=== PATIENT | female | born 1975 | race Caucasian/White ===

== ENCOUNTER 2018-10-26 05:39 | Outpatient (CLI) | payer MEDICAID ==
[~2018-10-26] VITALS: Ht 165.1 cm; Wt 82.6 kg
[~2018-10-26 05:39] MED LIST: ACHYD1T PO; AGM875T PO; DCS100C PO; GUAI100L2; IBP600T1 PO; IBP800T PO; MULT-974 PO; PREN1TAB14 PO
== END 2018-10-26 10:17 | disposition home or self-care (01) ==
LOC: PREOP 05:39
PROVIDERS: ATTEND Podiatrist Foot & Ankle Surgery
DX: Z01.818 Encounter for other preprocedural examination (principal)

== ENCOUNTER 2018-11-01 06:57 | Day surgery (SDC) | payer MEDICAID, OTHER ==
--- NOTE | 2018-10-25 17:02 | HISTORY AND PHYSICAL ---
DATE OF SERVICE: To have outpatient surgery by Dr. Sahni. CHIEF COMPLAINT: Bunion on right foot, hurts me and wants corrected. ALLERGIC TO MEDICATIONS: Denies. MEDICATIONS NOW ON: Denies. PAST SURGICAL HISTORY: Partial hysterectomy to have surgery by Dr. Sahni. FAMILY HISTORY: Denies asthma, TB, heart disease, lung disease. He admits in family to have diabetes and cancer. REVIEW OF SYSTEMS: HEAD: Denies headache, dizziness, fainting. EYES, EARS, NOSE AND THROAT: Denies diplopia, tinnitus, sore throat. RESPIRATORY: Denies asthma, TB, cough and congestion, smoking or wheezing. HEART: No history of heart problems, chest pain, heart murmur. GASTROINTESTINAL: Appetite good. Denies blood in stools, diarrhea, constipation, ulcer, vomiting. GENITOURINARY: Denies blood, pain or frequency. PHYSICAL EXAMINATION: GENERAL: The patient is a white female, well nourished, well-developed, in no acute respiratory distress at rest. VITAL SIGNS: Pulse 72, blood pressure 140/80, weight 182. EARS: No discharge. EYES: No conjunctivitis or icterus. THROAT: Not inflamed. NECK: Thyroid not enlarged. No abnormal cervical lymphadenopathy noted. CARDIOVASCULAR: Regular rate rhythm. LUNGS: Clear to auscultation. ABDOMEN: Soft. Good bowel sounds. EXTREMITIES: Good dorsalis pedis pulses. The patient okay to have surgery, will be on standby if has any problems. Job ID: [id number] DocumentID: [id number] Dictated Date: 10/25/2018 11:23:35 Room Service Associate Date: 10/25/2018 11:57:46 Dictated By: IKER CARDOSO DO
[2018-11-01] VITALS (10 sets, daily range): BP systolic 118–145; BP diastolic 75–89
[~2018-11-01] VITALS: Ht 165.1 cm; Wt 82.6 kg
--- OUTSIDE RECORDS SUMMARY | 2018-11-01 07:00 | XMS REPORT ---
Author Author Migration, Doctor Organization [facility] Address Unknown Phone Unavailable Care Team Providers Care Riprap Placer Name Role Phone Migration, Doctor Unavailable Unavailable PROBLEMS Type Condition ICD9-CM Code [id number] Code Onset Dates Condition Status SNOMED Code Problem Weight loss R63.4 Active 85154244 Problem Mixed hyperlipidemia E78.2 Active 849306556 Problem History of hysterectomy Z90.710 Active 660699936 ALLERGIES No Information ENCOUNTERS Encounter Location Date Diagnosis [facility] [address] [id number] Jun, Caries K02.9 ; Oral health maintenance status requiring routine preventive dental care K08.9 and Dental examination Z01.20 [facility] [id number] [place] [address] 71260- 3505 Apr, Annual physical exam Z00.00 [facility] [id number] [place] [address] [id number] Mar, [facility] [id number] [place] [address] [id number] Nov, Encounter for dental examination Z01.20 [facility] [id number] [place] [address] 71323- 9324 October, Encounter for weight loss counseling Z71.3 [facility] [id number] [place] [address] 15471- 9337 Sep, Weight loss R63.4 [facility] [id number] [place] [address] 73653- 4261 Aug, [facility] [id number] [place] [address] 71783- 9346 Aug, Mixed hyperlipidemia E78.2 [place] [id number] [place] [address] 51912- 2590 Aug, Annual physical exam Z00.00 and Weight loss counseling, encounter for Z71.3 [facility] [id number] [place] [address] [id number] Jul, Encounter for dental examination Z01.20 [facility] [address] [id number] [id number] Mar, Encounter for dental examination Z01.20 [facility] [id number] [place] [address] [id number] Nov, Encounter for dental examination Z01.20 [facility] [id number] [place] [address] [id number] Sep, Dental examination Z01.20 [facility] [id number] [place] [address] [id number] May, Encounter for dental examination Z01.20 [facility] [id number] [place] [address] [id number] Jan, Encounter for dental examination Z01.20 [facility] [id number] [place] [address] [id number] Sep, Encounter for dental examination Z01.20 [facility] [id number] [place] [address] [id number] Apr, Encounter for dental examination and cleaning without abnormal findings Z01.20 [facility] [address] [id number] [id number] Dec, Dental examination V72.2 [facility] [id number] [place] [address] [id number] October, Dental examination V72.2 [facility] [id number] [place] [address] 60947- 3326 Sep, [facility] [id number] [place] [address] 29524 2546 Sep, [facility] [id number] [place] [address] 60008- 0606 Feb, [facility] [place] [facility] [address] [id number] [place] [address] 2547 Dec, [facility] [address] [id number] [place] [address]- 8574 Dec, [facility] [address] [id number] [place] [address]- 2546 Dec, [facility] [address] [id number] [place] [address]- 2546 Dec, [facility] [address] [id number] [place] [address]- 4900 Dec, [facility] [address] [id number] [place] [address]- 0696 Nov, [facility] [address] [id number] [place] [address]- 5348 Nov, [facility] [address] [id number] [place] [address]- 3719 Nov, [facility] [address] [id number] [place] [address]- 2916 Nov, [facility] [address] [id number] [place] [address]- 3786 October, [facility] [address] [id number] [place] [address]- 3816 October, [facility] [address] [id number] [place] [address]- 2547 Sep, [facility] [address] [id number] [place] [address]- 2544 Aug, [facility] [place] [facility] [address] [id number] [place] [address]- 2546 Aug, [facility] [place] [facility] [address] [id number] [place] [address]- 2546 Aug, [facility] [address] [id number] [place] [address]- 1305 Aug, [facility] [address] [id number] [place] [address]- 1329 Jul, [facility] [place] [facility] [address] [id number] [place] [address] 1950 Jul, [facility] [place] [facility] [address] [facility] [id number] [place] [address]- 2036 Jul, [facility] [place] [facility] [address] [id number] [place] [address]- 1974 Jun, [facility] [address] [id number] [place] [address]- 6445 Jun, [facility] [place] [facility] [address] [facility] [id number] [place] [address]- 6802 Jun, [facility] [address] [facility] [id number] [place] [address]- 0145 Apr, [facility] [place] [facility] [address] [facility] [id number] [place] [address]- 7298 Apr, [facility] [place] [facility] [address] [facility] [id number] [place] [address]- 0620 Apr, [facility] [place] [facility] [address] [facility] [id number] [place] [address]- 3424 Apr, [facility] [place] [facility] [address] [facility] [id number], [place] [address]- 9580 Apr, [facility] [place] [facility] [address] [facility] [id number], [place] [address]- 2620 Apr, [facility] [place] [facility] [address] [facility] [id number], [place] [address] 1936 Mar, [facility] [place] [facility] [address] [facility] [id number] [place] [address]- 1355 Mar, [facility] [place] [facility] [address] [facility] [id number] [place] [address]- 5688 30 Mar, 2012 [facility] [place] [facility] [address] [id number] [place] [address]- 4202 30 Mar, 2012 [facility] [place] [facility] [address] [id number] [place] [address]- 9977 Mar, [facility] [place] [facility] [address] [id number] [place] [address]- 0886 Mar, [facility] [place] [facility] [address] [id number] [place] [address]- 7766 Feb, [facility] [place] [facility] [address] [id number] [place] [address]- 6766 Feb, [facility] [place] [facility] [address] [id number] [place] [address]- 7206 Feb, [facility] [place] [facility] [address] [id number] [place] [address]- 5077 Feb, [facility] [place] [facility] [address] [id number] [place] [address]- 9752 Jan, [facility] [place] [facility] [address] [id number] [place] [address]- 1213 Jan, [facility] [place] [facility] [address] [id number] [place] [address]- 2990 Jan, [facility] [place] [facility] [address] [id number] [place] [address]- 9177 Dec, [facility] [place] [facility] [address] [id number] [place] [address]- 5171 Dec, [facility] [place] [facility] [address] [id number] [place] [address]- 1897 Nov, [facility] [place] [facility] [address] [id number] [place] [address]- 5056 Nov, [facility] [place] [facility] [address] [id number] [place] [address]- 2546 17 Feb, 2009 [facility] [place] [facility] [address] [id number] [place] [address]- 1572 Jan, [facility] [address] [facility] [id number], [place] [address]- 2546 October, [facility] [address] [id number] [address] 2546 Sep, [facility] [address] [id number], [place] [address]- 8016 Jul, [facility] [address] [id number] [address]- 9906 Jun, IMMUNIZATIONS No Known Immunizations SOCIAL HISTORY Never Assessed REASON FOR VISIT EMR[place] [place] CARE VITAL SIGNS MEDICATIONS Unknown Medications RESULTS No Results PROCEDURES No Known procedures INSTRUCTIONS MEDICATIONS ADMINISTERED No Known Medications MEDICAL (GENERAL) HISTORY Type Description Date Medical History Seasonal Allergies Surgical History Hysterectomy 2012 Hospitalization History Hospitalization for surgery only 2012
--- OUTSIDE RECORDS SUMMARY | 2018-11-01 07:00 | XMS REPORT ---
Author Author MAYRA RAMSEY Organization [facility] Address [address] [place] [address] Care Team Providers Care Developer Programmer Analyst Name Role Phone MAYRA RAMSEY Unavailable PROBLEMS Type Condition ICD9-CM Code [id number] Code Onset Dates Condition Status SNOMED Code Problem Mixed hyperlipidemia E78.2 Active 792581041 Problem Weight loss R63.4 Active 80476266 Problem History of hysterectomy Z90.710 Active 424079325 ALLERGIES No Known Allergies ENCOUNTERS Encounter Location Date Diagnosis [facility] [address] [id number] May, [place] [address] [address]- [address] Apr, Annual physical exam Z00.00 [facility] [address] [id number] Mar, [facility] [address] [id number] Nov, Encounter for dental examination Z01.20 [place] [address] [address]- 5825 October, Encounter for weight loss counseling Z71.3 [facility] [address] 30673- 5659 Sep, Weight loss R63.4 [place] [address] [address]50- 3441 Aug, [place] [address] 75047- 6900 Aug, Mixed hyperlipidemia E78.2 [place] [address] [address]- 1475 Aug, Annual physical exam Z00.00 and Weight loss counseling, encounter for Z71.3 [facility] [id number] [place] [address] [id number] Jul, Encounter for dental examination Z01.20 [facility] [address] [id number] [place] [id number] Mar, Encounter for dental examination Z01.20 [facility] [address] [id number] [place] [address] [id number] Nov, Encounter for dental examination Z01.20 [facility] [id number] [place] [address] [id number] Sep, Dental examination Z01.20 [facility] [address] [id number] [place] [address] [id number] May, Encounter for dental examination Z01.20 [facility] [id number] [place] [address] [id number] Jan, Encounter for dental examination Z01.20 [facility] [address] [id number] [place] [address] [id number] Sep, Encounter for dental examination Z01.20 [facility] [address] [id number] [place] [address] [id number] Apr, Encounter for dental examination and cleaning without abnormal findings Z01.20 [facility] [id number] [place] [address] [id number] Dec, Dental examination V72.2 [facility] [address] [id number] [place] [address] [id number] October, Dental examination V72.2 [facility] [id number] [place] [address] [id number] Sep, [facility] [id number] [place] [address] 03862- 9806 Sep, [facility] [id number] [place] [address] 38298- 0891 Feb, [facility] [address] [id number] [place] [address]- 9069 Dec, [facility] [place] [facility] [address] [id number] [place] [address]- 6496 Dec, [facility] [place] [facility] [address] [id number] [place] [address]- 1096 Dec, [facility] [place] [facility] [address] [id number] [place] [address]- 2546 Dec, [facility] [address] [id number] [place] [address]- 9456 Dec, [facility] [place] [facility] [address] [id number] [place] [address]- 1136 Nov, [facility] [place] [facility] [address] [id number] [place] [address]- 3046 Nov, [facility] [place] [facility] [address] [id number] [place] [address]- 7346 Nov, [facility] [place] [facility] [address] [id number] [place] [address]- 8586 Nov, [facility] [place] [facility] [address] [id number] [place] [address]- 2536 October, [facility] [place] [facility] [address] [id number] [place] [address]- 2546 October, [facility] [place] [facility] [address] [id number] [place] [address]- 6726 Sep, [facility] [place] [facility] [address] [id number] [place] [address]- 1216 Aug, [facility] [place] [facility] [address] [id number] [place] [address]- 3436 Aug, [facility] [place] [facility] [address] [id number] [place] [address]- 7246 Aug, [facility] [place] [facility] [address] [id number] [place] [address]- 6616 Aug, [facility] [address] [id number] [place] [address]- 4354 Jul, [facility] [place] [facility] [address] [id number] [place] [address]- 8766 Jul, [facility] [place] [facility] [address] [facility] [id number] [place] [address]- 8006 Jul, [facility] [place] [facility] [address] [id number] [place] [address]- 7261 Jun, [facility] [place] [facility] [address] [id number] [place] [address]- 8608 Jun, [facility] [place] [facility] [address] [id number] [place] [address]- 2854 Jun, [facility] [place] [facility] [address] [facility] [id number] [place] [address]- 5176 Apr, [facility] [place] [facility] [address] [id number] [place] [address]- 4383 Apr, [facility] [place] [facility] [address] [facility] [id number] [place] [address]- 2774 Apr, [facility] [place] [facility] [address] [facility] [id number] [place] [address]- 6833 Apr, [facility] [place] [facility] [address] [facility] [id number] [place] [address]- 3097 Apr, [facility] [place] [facility] [address] [facility] [id number] [place] [address]- 2178 Apr, [facility] [place] [facility] [address] [id number] [place] [address]- 9752 Mar, [facility] [place] [facility] [address] [facility] [id number] [place] 6489 Mar, [facility] [place] [facility] [address] [facility] [id number] [place] [address]- 4062 Mar, [facility] [place] [facility] [address] [id number] [place] [address]- 4730 Mar, [facility] [place] [facility] [address] [id number] [place] [address]- 3482 Mar, [facility] [place] [facility] [address] [id number] [place] [address]- 3376 Mar, [facility] [place] [facility] [address] [id number] [place] [address]- 2733 Feb, [facility] [place] [facility] [address] [id number] [place] [address]- 1976 Feb, [facility] [place] [facility] [address] [id number] [place] [address]- 1526 Feb, [facility] [place] [facility] [address] [id number] [place] [address]- 1612 Feb, [facility] [place] [facility] [address] [id number] [place] [address]- 9997 Jan, [facility] [place] [facility] [address] [id number] [place] [address]- 7950 Jan, [facility] [place] [facility] [address] [id number] [place] [address]- 6731 Jan, [facility] [place] [facility] [address] [id number] [place] [address]- 5406 Dec, [facility] [place] [facility] [address] [id number] [place] [address]- 4448 Dec, [facility] [place] [facility] [address] [id number] [place] [address]- 1297 Nov, [facility] [place] [facility] [address] [id number] [place] [address]- 1834 Nov, [facility] [place] [facility] [address] [id number] [place] [address]- 6042 17 Feb, 2009 [facility] [place] [facility] [address] [id number] [place] [address]- 9423 Jan, [facility] [address] [facility] [id number] [place] [address]- 2546 October, [facility] [address] [facility] [id number] [place] [address]- 2546 Sep, [facility] [address] [facility] [id number] [place] [address]- 2546 Jul, [facility] [address] [facility] [id number] [place] [address]- 2546 Jun, IMMUNIZATIONS No Known Immunizations SOCIAL HISTORY Never Assessed REASON FOR VISIT yearly check up and labs for insurance July [facility] PLAN OF CARE Activity Details Follow Up August 2018 Reason:annual labs VITAL SIGNS Height 64 in 2018-05-04 Weight 173.5 lbs 2018-05-04 Temperature 97.9 degrees Fahrenheit 2018-05-04 Heart Rate 87 bpm 2018-05-04 Respiratory Rate 18 2018-05-04 BMI 29.78 kg/m2 2018-05-04 Blood pressure systolic 132 mmHg 2018-05-04 Blood pressure diastolic 82 mmHg 2018-05-04 MEDICATIONS Medication Instructions Dosage Frequency Start Date End Date Duration Status Zyrtec Allergy 10 MG Orally Once a day 1 tablet as needed 24h Active Multi Vitamin Daily Orally Once a day 1 tablet 24h Active RESULTS No Results PROCEDURES No Known procedures INSTRUCTIONS MEDICATIONS ADMINISTERED No Known Medications MEDICAL (GENERAL) HISTORY Type Description Date Medical History Seasonal Allergies Surgical History Hysterectomy 2012 Hospitalization History Hospitalization for surgery only 2012
--- OUTSIDE RECORDS SUMMARY | 2018-11-01 07:00 | XMS REPORT ---
Author Author Migration, Doctor Organization [facility] Address Unknown Phone Unavailable Care Team Providers Care Food And Beverage Intern Name Role Phone Migration, Doctor Unavailable Unavailable PROBLEMS Type Condition ICD9-CM Code KGA78-HI Code Onset Dates Condition Status SNOMED Code Problem Weight loss R63.4 Active 07072671 Problem Mixed hyperlipidemia E78.2 Active 554384657 Problem History of hysterectomy Z90.710 Active 121841373 ALLERGIES No Information ENCOUNTERS Encounter Location Date Diagnosis [facility] [address] [id number] Jun, Caries K02.9 ; Oral health maintenance status requiring routine preventive dental care K08.9 and Dental examination Z01.20 [facility] [id number] [place] [address] 57798- 1412 Apr, Annual physical exam Z00.00 [facility] [id number] [place] [address] [id number] Mar, [facility] [id number] [place] [address] [id number] Nov, Encounter for dental examination Z01.20 [facility] [id number] [place] [address] 67795- 3902 October, Encounter for weight loss counseling Z71.3 [facility] [id number] [place] [address] 34419- 3609 Sep, Weight loss R63.4 [facility] [id number] [place] [address] 02862- 0125 Aug, [facility] [id number] [place] [address] 13470- 6873 Aug, Mixed hyperlipidemia E78.2 [place] [id number] [place] [address] 27772- 2292 Aug, Annual physical exam Z00.00 and Weight loss counseling, encounter for Z71.3 [facility] [id number] [place] [address] [id number] Jul, Encounter for dental examination Z01.20 [facility] [address] [id number] [id number] Mar, Encounter for dental examination Z01.20 [facility] [id number] [place] [address] [id number] Nov, Encounter for dental examination Z01.20 [facility] [address] [id number] [place] [address] [id number] Sep, Dental examination Z01.20 [facility] [id number] [place] [address] [id number] May, Encounter for dental examination Z01.20 [facility] [id number] [place] [address] [id number] Jan, Encounter for dental examination Z01.20 [facility] [address] [id number] [place] [address] [id number] Sep, Encounter for dental examination Z01.20 [facility] [address] [id number] [place] [address] [id number] Apr, Encounter for dental examination and cleaning without abnormal findings Z01.20 [facility] [address] [id number] [id number] Dec, Dental examination V72.2 [facility] [address] [id number] [place] [address] [id number] October, Dental examination V72.2 [facility] [id number] [place] [address] 43911- 5886 Sep, [facility] [id number] [place] [address] 86017 2546 Sep, [facility] [id number] [place] [address] 08905- 3906 Feb, [facility] [place] [facility] [address] [id number] [place] [address] 2543 Dec, [facility] [address] [id number] [place] [address]- 8584 Dec, [facility] [address] [id number] [place] [address]- 2546 Dec, [facility] [address] [id number] [place] [address]- 2546 Dec, [facility] [address] [id number] [place] [address]- 4514 Dec, [facility] [address] [id number] [place] [address]- 0926 Nov, [facility] [address] [id number] [place] [address]- 0694 Nov, [facility] [address] [id number] [place] [address]- 6794 Nov, [facility] [address] [id number] [place] [address]- 3354 Nov, [facility] [address] [id number] [place] [address]- 6356 October, [facility] [address] [id number] [place] [address]- 0926 October, [facility] [address] [id number] [place] [address]- 2545 Sep, [facility] [address] [id number] [place] [address]- 2548 Aug, [facility] [place] [facility] [address] [id number] [place] [address]- 2546 Aug, [facility] [place] [facility] [address] [id number] [place] [address]- 2546 Aug, [facility] [address] [id number] [place] [address]- 3188 Aug, [facility] [address] [id number] [place] [address]- 4446 Jul, [facility] [place] [facility] [address] [id number] [place] [address]- 5352 Jul, [facility] [place] [facility] [address] [facility] [id number] [place] [address]- 2576 Jul, [facility] [place] [facility] [address] [id number] [place] [address]- 2904 Jun, [facility] [address] [id number] [place] [address]- 9491 Jun, [facility] [place] [facility] [address] [facility] [id number] [place] [address]- 0187 Jun, [facility] [address] [facility] [id number] [place] [address]- 0510 Apr, [facility] [place] [facility] [address] [facility] [id number] [place] [address]- 3770 Apr, [facility] [place] [facility] [address] [facility] [id number] [place] [address]- 0757 Apr, [facility] [place] [facility] [address] [facility] [id number] [place] [address]- 1636 Apr, [facility] [place] [facility] [address] [facility] [id number], [place] [address]- 8838 Apr, [facility] [place] [facility] [address] [facility] [id number], [place] [address]- 0309 Apr, [facility] [place] [facility] [address] [facility] [id number], [place] [address]- 6861 Mar, [facility] [place] [facility] [address] [facility] [id number] [place] [address]- 4568 Mar, [facility] [place] [facility] [address] [facility] [id number] [place] [address]- 9736 30 Mar, 2012 [facility] [place] [facility] [address] [id number] [place] [address]- 2250 30 Mar, 2012 [facility] [place] [facility] [address] [id number] [place] [address]- 5279 Mar, [facility] [place] [facility] [address] [id number] [place] [address]- 8546 Mar, [facility] [place] [facility] [address] [id number] [place] [address]- 5036 Feb, [facility] [place] [facility] [address] [id number] [place] [address]- 5376 Feb, [facility] [place] [facility] [address] [id number] [place] [address]- 1866 Feb, [facility] [place] [facility] [address] [id number] [place] [address]- 9085 Feb, [facility] [place] [facility] [address] [id number] [place] [address]- 7475 Jan, [facility] [place] [facility] [address] [id number] [place] [address]- 2490 Jan, [facility] [place] [facility] [address] [id number] [place] [address]- 2326 Jan, [facility] [place] [facility] [address] [id number] [place] [address]- 0108 Dec, [facility] [place] [facility] [address] [id number] [place] [address]- 5805 Dec, [facility] [place] [facility] [address] [id number] [place] [address]- 1925 Nov, [facility] [place] [facility] [address] [id number] [place] [address]- 8236 Nov, [facility] [place] [facility] [address] [id number] [place] [address]- 2546 17 Feb, 2009 [facility] [place] [facility] [address] [id number] [place] [address]- 1392 Jan, [facility] [address] [facility] [id number] [address] 2546 October, [facility] [address] [facility] [id number] [address] 2546 Sep, [facility] [address] [facility] [id number] [address]- 2546 Jul, [facility] [address] [facility] [id number], [place] [address]- 2546 Jun, IMMUNIZATIONS No Known Immunizations SOCIAL HISTORY Never Assessed REASON FOR VISIT EMR-[facility] PLAN OF CARE VITAL SIGNS MEDICATIONS Medication Instructions Dosage Frequency Start Date End Date Duration Status Ibuprofen 800 mg take 1 tablet (800 mg) by oral route 3 times per day with food Feb, Active Hydrocodone-Acetaminophen 10-325 mg take 1 tablet by oral route every 4 hours as needed for pain Feb, Active Flagyl 500 mg 1 tablet by Oral route 2 times per day for 7 days Aug Active RESULTS No Results PROCEDURES No Known procedures INSTRUCTIONS MEDICATIONS ADMINISTERED No Known Medications MEDICAL (GENERAL) HISTORY Type Description Date Medical History Seasonal Allergies Surgical History Hysterectomy 2012 Hospitalization History Hospitalization for surgery only 2012
--- OUTSIDE RECORDS SUMMARY | 2018-11-01 07:00 | XMS REPORT ---
Author Author Migration, Doctor Organization [facility] Address Unknown Phone Unavailable Care Team Providers Care Court Recording Monitor Name Role Phone Migration, Doctor Unavailable Unavailable PROBLEMS Type Condition ICD9-CM Code LXD50-WD Code Onset Dates Condition Status SNOMED Code Problem Weight loss R63.4 Active 44445768 Problem Mixed hyperlipidemia E78.2 Active 776757160 Problem History of hysterectomy Z90.710 Active 876643815 ALLERGIES No Information ENCOUNTERS Encounter Location Date Diagnosis [facility] [address] [id number] Jun, Caries K02.9 ; Oral health maintenance status requiring routine preventive dental care K08.9 and Dental examination Z01.20 [facility] [id number] [place] [address] 19546- 2527 Apr, Annual physical exam Z00.00 [facility] [id number] [place] [address] [id number] Mar, [facility] [id number] [place] [address] [id number] Nov, Encounter for dental examination Z01.20 [facility] [id number] [place] [address] 14282- 4093 October, Encounter for weight loss counseling Z71.3 [facility] [id number] [place] [address] 49141- 2821 Sep, Weight loss R63.4 [facility] [id number] [place] [address] 11062- 1391 Aug, [facility] [id number] [place] [address] 34234- 9845 Aug, Mixed hyperlipidemia E78.2 [facility] [id number] [place] [address] 46243- 8243 Aug, Annual physical exam Z00.00 and Weight loss counseling, encounter for Z71.3 [facility] [address] [id number] [place] [address] [id number] Jul, Encounter for dental examination Z01.20 [facility] [address] [id number] [id number] Mar, Encounter for dental examination Z01.20 [facility] [address] [id number] [place] [address] [id number] Nov, Encounter for dental examination Z01.20 [facility] [address] [id number] [place] [address] [id number] Sep, Dental examination Z01.20 [facility] [address] [id number] [place] [address] [id number] May, Encounter for dental examination Z01.20 [facility] [address] [id number] [place] [address] [id number] Jan, Encounter for dental examination Z01.20 [facility] [address] [id number] [place] [address] [id number] Sep, Encounter for dental examination Z01.20 [facility] [address] [id number] [place] [address] [id number] Apr, Encounter for dental examination and cleaning without abnormal findings Z01.20 [facility] [address] [id number][place] [id number] Dec, Dental examination V72.2 [facility] [id number] [place] [address] [id number] October, Dental examination V72.2 [facility] [address] [place] [address] 52266- 6106 Sep, [facility] [id number] [place] [address] 58908 2546 Sep, [facility] [address] [place] [address] 68978- 6776 Feb, [facility] [place] [facility] [address] [id number] [place] [address] 2547 Dec, [facility] [address] [id number] [place] [address]- 7344 Dec, [facility] [address] [id number] [place] [address]- 2546 Dec, [facility] [address] [id number] [place] [address]- 2546 Dec, [facility] [address] [id number] [place] [address]- 1317 Dec, [facility] [address] [id number] [place] [address]- 1886 Nov, [facility] [address] [id number] [place] [address]- 9773 Nov, [facility] [address] [id number] [place] [address]- 2284 Nov, [facility] [address] [id number] [place] [address]- 9777 Nov, [facility] [address] [id number] [place] [address]- 9478 October, [facility] [address] [id number] [place] [address]- 7516 October, [facility] [address] [id number] [place] [address]- 2544 Sep, [facility] [address] [id number] [place] [address]- 2549 Aug, [facility] [place] [facility] [address] [id number] [place] [address]- 2546 Aug, [facility] [place] [facility] [address] [id number] [place] [address]- 2546 Aug, [facility] [address] [id number] [place] [address]- 3820 Aug, [facility] [address] [id number] [place] [address]- 0062 Jul, [facility] [place] [facility] [address] [id number] [place] [address]- 0408 Jul, [facility] [place] [facility] [address] [facility] [id number] [place] [address]- 9780 Jul, [facility] [place] [facility] [address] [id number] [place] [address]- 2577 Jun, [facility] [address] [id number] [place] [address]- 7188 Jun, [facility] [place] [facility] [address] [facility] [id number] [place] [address]- 1685 Jun, [facility] [address] [facility] [id number] [place] [address]- 8345 Apr, [facility] [place] [facility] [address] [facility] [id number] [place] [address]- 7428 Apr, [facility] [place] [facility] [address] [facility] [id number] [place] [address]- 5553 Apr, [facility] [place] [facility] [address] [facility] [id number] [place] [address]- 4026 Apr, [facility] [place] [facility] [address] [facility] [id number], [place] [address]- 9895 Apr, [facility] [place] [facility] [address] [facility] [id number], [place] [address]- 4095 Apr, [facility] [place] [facility] [address] [facility] [id number], [place] [address]- 3392 Mar, [facility] [place] [facility] [address] [facility] [id number] [place] [address]- 5223 Mar, [facility] [place] [facility] [address] [facility] [id number] [place] [address]- 7558 30 Mar, 2012 [facility] [place] [facility] [address] [id number] [place] [address]- 4952 30 Mar, 2012 [facility] [place] [facility] [address] [id number] [place] [address]- 8319 Mar, [facility] [place] [facility] [address] [id number] [place] [address]- 4226 Mar, [facility] [place] [facility] [address] [id number] [place] [address]- 9446 Feb, [facility] [place] [facility] [address] [id number] [place] [address]- 4426 Feb, [facility] [place] [facility] [address] [id number] [place] [address]- 2816 Feb, [facility] [place] [facility] [address] [id number] [place] [address]- 6070 Feb, [facility] [place] [facility] [address] [id number] [place] [address]- 9209 Jan, [facility] [place] [facility] [address] [id number] [place] [address]- 8704 Jan, [facility] [place] [facility] [address] [id number] [place] [address]- 7212 Jan, [facility] [place] [facility] [address] [id number] [place] [address]- 0380 Dec, [facility] [place] [facility] [address] [id number] [place] [address]- 3166 Dec, [facility] [place] [facility] [address] [id number] [place] [address]- 2440 Nov, [facility] [place] [facility] [address] [id number] [place] [address]- 2476 Nov, [facility] [place] [facility] [address] [id number] [place] [address]- 2546 17 Feb, 2009 [facility] [place] [facility] [address] [id number] [place] [address]- 8120 Jan, [facility] [address] [facility] [id number], [place] [address]- 2546 October, [facility] [address] [id number], [place] [address] 2546 Sep, [facility] [address] [id number], [place] [address]- 9596 Jul, [facility] [address] [id number], [place] [address]- 0116 Jun, IMMUNIZATIONS No Known Immunizations SOCIAL HISTORY Never Assessed REASON FOR VISIT EMR-[facility] PLAN OF CARE VITAL SIGNS MEDICATIONS Unknown Medications RESULTS No Results PROCEDURES No Known procedures INSTRUCTIONS MEDICATIONS ADMINISTERED No Known Medications MEDICAL (GENERAL) HISTORY Type Description Date Medical History Seasonal Allergies Surgical History Hysterectomy 2012 Hospitalization History Hospitalization for surgery only 2012
--- OUTSIDE RECORDS SUMMARY | 2018-11-01 07:00 | XMS REPORT ---
Author Author Migration, Doctor Organization [facility] Address Unknown Phone Unavailable Care Team Providers Care Dust Collector Operator Name Role Phone Migration, Doctor Unavailable Unavailable PROBLEMS Type Condition ICD9-CM Code VOQ09-ZP Code Onset Dates Condition Status SNOMED Code Problem Weight loss R63.4 Active 16295835 Problem Mixed hyperlipidemia E78.2 Active 660020954 Problem History of hysterectomy Z90.710 Active 468173044 ALLERGIES No Information ENCOUNTERS Encounter Location Date Diagnosis [facility] [address] [id number] Jun, Caries K02.9 ; Oral health maintenance status requiring routine preventive dental care K08.9 and Dental examination Z01.20 [facility] [id number] [place] [address] 49759- 2437 Apr, Annual physical exam Z00.00 [facility] [id number] [place] [address] [id number] Mar, [facility] [id number] [place] [address] [id number] Nov, Encounter for dental examination Z01.20 [facility] [id number] [place] [address] 46148- 4724 October, Encounter for weight loss counseling Z71.3 [facility] [id number] [place] [address] 84987- 3411 Sep, Weight loss R63.4 [facility] [id number] [place] [address] 24635- 8997 Aug, [facility] [id number] [place] [address] 49181- 4849 Aug, Mixed hyperlipidemia E78.2 [place] [id number] [place] [address] 85901- 8133 Aug, Annual physical exam Z00.00 and Weight loss counseling, encounter for Z71.3 [facility] [id number] [place] [address] [id number] Jul, Encounter for dental examination Z01.20 [facility] [address] [id number] [id number] Mar, Encounter for dental examination Z01.20 [facility] [id number] [place] [address] [id number] Nov, Encounter for dental examination Z01.20 [facility] [address] [id number] [place] [address] [id number] Sep, Dental examination Z01.20 [facility] [id number] [place] [address] [id number] May, Encounter for dental examination Z01.20 [facility] [id number] [place] [address] [id number] Jan, Encounter for dental examination Z01.20 [facility] [id number] [place] [address] [id number] Sep, Encounter for dental examination Z01.20 [facility] [address] [id number] [place] [address] [id number] Apr, Encounter for dental examination and cleaning without abnormal findings Z01.20 [facility] [address] [id number][place] [id number] Dec, Dental examination V72.2 [facility] [id number] [place] [address] [id number] October, Dental examination V72.2 [facility] [id number] [place] [address] 88647- 7736 Sep, [facility] [id number] [place] [address] [id number] 2546 Sep, [facility] [id number] [place] [address] 02644- 3166 Feb, [facility] [place] [facility] [address] [id number] [place] [address] 254 Dec, [facility] [address] [id number] [place] [address]- 8978 Dec, [facility] [address] [id number] [place] [address]- 2546 Dec, [facility] [address] [id number] [place] [address]- 2546 Dec, [facility] [address] [id number] [place] [address]- 1487 Dec, [facility] [address] [id number] [place] [address]- 1376 Nov, [facility] [address] [id number] [place] [address]- 0580 Nov, [facility] [address] [id number] [place] [address]- 2439 Nov, [facility] [address] [id number] [place] [address]- 3896 Nov, [facility] [address] [id number] [place] [address]- 6596 October, [facility] [address] [id number] [place] [address]- 3446 October, [facility] [address] [id number] [place] [address]- 2544 Sep, [facility] [address] [id number] [place] [address]- 2545 Aug, [facility] [place] [facility] [address] [id number] [place] [address]- 2546 Aug, [facility] [place] [facility] [address] [id number] [place] [address]- 2546 Aug, [facility] [address] [id number] [place] [address]- 0147 Aug, [facility] [address] [id number] [place] [address]- 5021 Jul, [facility] [place] [facility] [address] [id number] [place] [address]- 2402 Jul, [facility] [place] [facility] [address] [facility] [id number] [place] [address]- 5890 Jul, [facility] [place] [facility] [address] [id number] [place] [address]- 2908 Jun, [facility] [address] [id number] [place] [address]- 4418 Jun, [facility] [place] [facility] [address] [facility] [id number] [place] [address]- 3559 Jun, [facility] [address] [facility] [id number] [place] [address]- 7408 Apr, [facility] [place] [facility] [address] [facility] [id number] [place] [address]- 1700 Apr, [facility] [place] [facility] [address] [facility] [id number] [place] [address]- 8100 Apr, [facility] [place] [facility] [address] [facility] [id number] [place] [address]- 0769 Apr, [facility] [place] [facility] [address] [facility] [id number][place] [address]- 2046 Apr, [facility] [place] [facility] [address] [facility] [id number], [place] [address] 1943 Apr, [facility] [place] [facility] [address] [facility] [id number][place] [address]- 3401 Mar, [facility] [place] [facility] [address] [facility] [id number] [place] [address]- 2400 Mar, [facility] [place] [facility] [address] [facility] [id number] [place] [address]- 7389 30 Mar, 2012 [facility] [place] [facility] [address] [id number] [place] [address]- 7929 30 Mar, 2012 [facility] [place] [facility] [address] [id number] [place] [address]- 7858 Mar, [facility] [place] [facility] [address] [id number] [place] [address]- 5856 Mar, [facility] [place] [facility] [address] [id number] [place] [address]- 2306 Feb, [facility] [place] [facility] [address] [id number] [place] [address]- 6276 Feb, [facility] [place] [facility] [address] [id number] [place] [address]- 1316 Feb, [facility] [place] [facility] [address] [id number] [place] [address]- 5926 Feb, [facility] [place] [facility] [address] [id number] [place] [address]- 8827 Jan, [facility] [place] [facility] [address] [id number] [place] [address]- 8282 Jan, [facility] [place] [facility] [address] [id number] [place] [address]- 5961 Jan, [facility] [place] [facility] [address] [id number] [place] [address]- 0850 Dec, [facility] [place] [facility] [address] [id number] [place] [address]- 0224 Dec, [facility] [place] [facility] [address] [id number] [place] [address]- 1506 Nov, [facility] [place] [facility] [address] [id number] [place] [address]- 9456 Nov, [facility] [place] [facility] [address] [id number] [place] [address]- 2546 17 Feb, 2009 [facility] [place] [facility] [address] [id number] [place] [address]- 2713 Jan, [facility] [address] [facility] [id number], [place] [address]- 2546 October, [facility] [address] [id number] [address] 2546 Sep, [facility] [address] [id number] [address]- 2136 Jul, [facility] [address] [id number] [address]- 7986 Jun, IMMUNIZATIONS No Known Immunizations SOCIAL HISTORY Never Assessed REASON FOR VISIT EMR-[facility] PLAN OF CARE VITAL SIGNS MEDICATIONS Unknown Medications RESULTS No Results PROCEDURES No Known procedures INSTRUCTIONS MEDICATIONS ADMINISTERED No Known Medications MEDICAL (GENERAL) HISTORY Type Description Date Medical History Seasonal Allergies Surgical History Hysterectomy 2012 Hospitalization History Hospitalization for surgery only 2012
--- OUTSIDE RECORDS SUMMARY | 2018-11-01 07:01 | XMS REPORT ---
Author Author PELON MAN [facility] Address [address] [place] [address] Care Team Providers Care Supervisor Of Communications Name Role Phone PELON MAN Unavailable PROBLEMS Type Condition ICD9-CM Code RGE19-VL Code Onset Dates Condition Status SNOMED Code Problem Mixed hyperlipidemia E78.2 Active 097463576 Problem Weight loss R63.4 Active 63113577 Problem History of hysterectomy Z90.710 Active 230032036 ALLERGIES No Known Allergies ENCOUNTERS Encounter Location Date Diagnosis [facility] [id number] [place] [address] [id number] Mar, [facility] [id number] [place] [address] [id number] Nov, Encounter for dental examination Z01.20 [facility] [id number] [place] [address] 85287- 7123 October, Encounter for weight loss counseling Z71.3 [facility] [id number] [place] [address] 94294- 0967 Sep, Weight loss R63.4 [facility] [id number] [place] [address] 67864- 4966 Aug, [facility] [id number] [place] [address] 88423- 5381 Aug, Mixed hyperlipidemia E78.2 [facility] [id number] [place] [address] 99731- 3545 Aug, Annual physical exam Z00.00 and Weight loss counseling, encounter for Z71.3 [facility] [id number] [place] [address] [id number] Jul, Encounter for dental examination Z01.20 [facility] [address] [id number] [id number] Mar, [facility] for dental examination [facility]01.20 [facility] [address] [id number] [id number] Nov, Encounter for dental examination Z01.20 [facility] [address] [id number][place] [id number] Sep, Dental examination Z01.20 [facility] [address] [id number][place] [id number] May, Encounter for dental examination Z01.20 [facility] [address] [id number][place] [id number] Jan, Encounter for dental examination Z01.20 [facility] [address] [id number][place] [id number] Sep, Encounter for dental examination Z01.20 [facility] [address] [id number][place] [id number] Apr, Encounter for dental examination and cleaning without abnormal findings Z01.20 [facility] [address] [id number][place] [id number] Dec, Dental examination V72.2 [facility] [address] [id number][place] [id number] October, Dental examination V72.2 [facility] [address] [id number], [place] [address]- 9056 Sep, [facility] [address] [id number], [place] [address] 2546 Sep, [facility] [address] [id number], [place] [address] 2546 Feb, [facility] [address] [id number], [place] [address] 2546 Dec, [facility] [address]00565100[place], [place] [address]- 9796 Dec, [facility] [address] [id number] [place] [address]- 2546 Dec, [facility] [address] [id number] [place] [address]- 9636 Dec, [facility] [place] [facility] [address] [id number] [place] [address]- 2546 Dec, [facility] [address] [id number] [place] [address]- 8257 Nov, [facility] [place] [facility] [address] [id number] [place] [address]- 3789 Nov, [facility] [address] [id number] [place] [address]- 4780 Nov, [facility] [address] [id number] [place] [address]- [address]856 Nov, [facility] [address] [id number] [place] [address]- 9898 October, [facility] [address] [id number] [place] [address]- 0884 October, [facility] [address] [id number] [place] [address]- 8026 Sep, [facility] [address] [id number] [place] [address]- 3471 Aug, [facility] [place] [facility] [address] [id number] [place] [address]- 2546 Aug, [facility] [place] [facility] [address] [id number] [place] [address]- 2546 Aug, [facility] [place] [facility] [address] [id number] [place] [address]- 2546 Aug, [facility] [place] [facility] [address] [id number] [place] [address]- 2546 Jul, [facility] [place] [facility] [address] [id number] [place] [address]- 3412 Jul, [facility] [place] [facility] [address] [id number] [place] [address]- 2936 Jul, [facility] [place] [facility] [address] [id number] [place] [address]- 2882 Jun, [facility] [place] [facility] [address] [id number] [place] [address]- 1924 Jun, [facility] [place] [facility] [address] [id number] [place] [address]- 5191 Jun, [facility] [place] [facility] [address] [id number] [place] [address]- 2080 Apr, [facility] [place] [facility] [address] [id number] [place] [address]- 1714 Apr, [facility] [place] [facility] [address] [id number] [place] [address]- 7333 Apr, [facility] [place] [facility] [address] [id number] [place] [address]- 6807 Apr, [facility] [place] [facility] [address] [id number] [place] [address]- 9860 Apr, [facility] [place] [facility] [address] [facility] [id number] [place] [address]- 9964 Apr, [facility] [place] [facility] [address] [id number][place] [address]- 9348 Mar, [facility] [place] [facility] [address] [id number], [place] [address]- 0840 Mar, [facility] [place] [facility] [address] [id number] [place] [address]- 8776 Mar, [facility] [place] [facility] [address] [id number], [place] [address]- 3224 Mar, [facility] [place] [facility] [address] [facility] [id number][place] [address]- 0419 Mar, [facility] [place] [facility] [address] [id number] [place] [address]- 7517 30 Mar, 2012 [facility] [place] [facility] [address] [id number] [place] [address]- 1036 11 Feb, 2012 [facility] [place] [facility] [address] [id number] [place] [address] 2546 11 Feb, 2012 [facility] [place] [facility] [address] [id number] [place] [address] 2546 05 Feb, 2012 [facility] [place] [facility] [address] [id number] [place] [address] 2546 05 Feb, 2012 [facility] [place] [facility] [address] [id number] [place] [address]- 6318 Jan, [facility] [place] [facility] [address] [id number] [place] [address]- 3252 Jan, [facility] [place] [facility] [address] [id number] [place] [address]- 2354 Jan, [facility] [place] [facility] [address] [id number] [place] [address]- 3935 Dec, [facility] [place] [facility] [address] [id number] [place] [address]- 5822 Dec, [facility] [place] [facility] [address] [id number] [place] [address]- 2336 Nov, [facility] [place] [facility] [address] [id number] [place] [address]- 5586 Nov, [facility] [place] [facility] [address] [id number] [place] [address]- 2468 17 Feb, 2009 [facility] [place] [facility] [address] [id number] [place] [address]- 7938 Jan, [facility] [place] [facility] [address] [id number] [place] [address]- 6982 October, [facility] [place] [facility] [address] [id number] [place] [address]- 6048 Sep, [facility] [address] [facility] [id number] [place] [address]- 8693 Jul, [facility] [address] [facility] [id number] [place] [address]- 1943 Jun, IMMUNIZATIONS No Known Immunizations SOCIAL HISTORY Never Assessed REASON FOR VISIT 4 mo reca PLAN OF CARE Activity Details Follow Up 4 Months Reason:Recall VITAL SIGNS Blood pressure systolic 108 mmHg 2017-12-17 Blood pressure diastolic 62 mmHg 2017-12-17 MEDICATIONS Medication Instructions Dosage Frequency Start Date End Date Duration Status Multi Vitamin Daily Orally Once a day 1 tablet 24h Active Phentermine HCl 37.5 MG Orally Once a day 1 tablet 24h Aug, 30 days Not-Taking Zyrtec Allergy 10 MG Orally Once a day 1 tablet as needed 24h Active RESULTS No Results PROCEDURES Procedure Date Ordered Result Body Site PROPHYLAXIS - ADULT December 17, 2017 TOPICAL FLUORIDE VARNISH December 17, 2017 INSTRUCTIONS MEDICATIONS ADMINISTERED No Known Medications MEDICAL (GENERAL) HISTORY Type Description Date Medical History Seasonal Allergies Surgical History Hysterectomy 2012 Hospitalization History Hospitalization for surgery only 2012
--- OUTSIDE RECORDS SUMMARY | 2018-11-01 07:01 | XMS REPORT ---
Author Author MAYRA RAMSEY Organization [facility] IN [facility] Address [address] [place] [address] Care Team Providers Care Pill Maker Name Role Phone MAYRA RAMSEY Unavailable PROBLEMS Type Condition ICD9-CM Code [id number] Code Onset Dates Condition Status SNOMED Code Problem Mixed hyperlipidemia E78.2 Active 987989107 Problem Weight loss R63.4 Active 15369273 Problem History of hysterectomy Z90.710 Active 694934684 ALLERGIES No Known Allergies ENCOUNTERS Encounter Location Date Diagnosis [facility] [address] [id number] Mar, [facility] [address] [id number] Nov, Encounter for dental examination Z01.20 [facility] [id number] [place] [address]368- 3579 October, Encounter for weight loss counseling Z71.3 [facility] [id number] [place] [address]229- 6900 Sep, Weight loss R63.4 [facility] [address] [address] Aug, [facility] [id number] [place] [address] 9[address]27- 3384 Aug, Mixed hyperlipidemia E78.2 [facility] [address] [address] Aug, Annual physical exam Z00.00 and Weight loss counseling, encounter for Z71.3 [facility] [id number] [place] [address] [id number] Jul, Encounter for dental examination Z01.20 [facility] [address] [id number] [id number] Mar, Encounter for dental examination Z01.20 [facility] [address] [id number][place] [id number] Nov, Encounter for dental examination Z01.20 [facility] [address] [id number][place] [id number] Sep, Dental examination Z01.20 [facility] [address] [id number] [id number] May, Encounter for dental examination Z01.20 [facility] [id number] [place] [id number] Jan, Encounter for dental examination Z01.20 [facility] [address] [id number][place] [id number] Sep, Encounter for dental examination Z01.20 [facility] [address] [id number][place] [id number] Apr, Encounter for dental examination and cleaning without abnormal findings Z01.20 [facility] [address] [id number][place] [id number] Dec, Dental examination V72.2 [facility] [address] [id number][place] [id number] October, Dental examination V72.2 [facility] [address] [id number], [place] [address] Sep, [facility] [address] [id number], [place] [address] Sep, [facility] [address] [id number], [place] [address] Feb, [facility] [address] [id number] [address] Dec, [facility] [address] [id number], [place] [address] Dec, [facility] [address] [id number] [place] [address] Dec, [facility] [place] [facility] [address] [id number] [place] [address]- 5073 Dec, [facility] [place] [facility] [address] [id number] [place] [address]- 2546 Dec, [facility] [place] [facility] [address] [id number] [place] [address]- 4957 Nov, [facility] [place] [facility] [address] [id number] [place] [address]- 3797 Nov, [facility] [place] [facility] [address] [id number] [place] [address]- 3112 Nov, [facility] [place] [facility] [address] [id number] [place] [address]- 7313 Nov, [facility] [place] [facility] [address] [id number] [place] [address]- 6022 October, [facility] [place] [facility] [address] [id number] [place] [address]- 3123 October, [facility] [place] [facility] [address] [id number] [place] [address]- 2959 Sep, [facility] [place] [facility] [address] [id number] [place] [address]- 7270 Aug, [facility] [place] [facility] [address] [id number] [place] [address]- 8013 Aug, [facility] [place] [facility] [address] [id number] [place] [address]- 2434 Aug, [facility] [place] [facility] [address] [id number] [place] [address]- 2473 Aug, [facility] [place] [facility] [address] [id number] [place] [address]- 7363 Jul, [facility] [place] [facility] [address] [id number] [place] [address]- 5919 Jul, [facility] [place] [facility] [address] [id number] [place] [address]- 0083 Jul, [facility] [place] [facility] [address] [id number] [place] [address]- 6101 Jun, [facility] [place] [facility] [address] [id number] [place] [address]- 1379 Jun, [facility] [place] [facility] [address] [id number] [place] [address]- 9501 Jun, [facility] [place] [facility] [address] [id number] [place] [address]- 4739 Apr, [facility] [place] [facility] [address] [id number] [place] [address]- 5950 Apr, [facility] [place] [facility] [address] [id number] [place] [address]- 3003 Apr, [facility] [place] [facility] [address] [id number] [place] [address]- 9378 Apr, [facility] [place] [facility] [address] [id number] [place] [address]- 5069 Apr, [facility] [place] [facility] [address] [id number] [place] [address]- 9068 Apr, [facility] [place] [facility] [address] [id number], [place] [address]- 7[address] Mar, [facility] [place] [facility] [address] [id number], [place] [address]- 360[address] Mar, [facility] [place] [facility] [address] [id number] [place] [address]- 8171 Mar, [facility] [place] [facility] [address] [id number] [place] [address]- 7869 Mar, [facility] [place] [facility] [address] [id number] [place] [address]- 9187 Mar, [facility] [place] [facility] [address] [id number] [place] [address]- 3570 30 Mar, 2012 [facility] [address] [id number] [place] [address]- 5766 11 Feb, 2012 [facility] [place] [facility] [address] [id number] [place] [address]- 3766 11 Feb, 2012 [facility] [address] [id number] [place] [address]- 7336 05 Feb, 2012 [facility] [place] [facility] [address] [id number] [place] [address]- 4025 05 Feb, 2012 [facility] [address] [id number] [place] [address]- 0458 Jan, [facility] [address] [id number] [place] [address]- 7359 Jan, [facility] [address] [id number] [place] [address]- 5338 Jan, [facility] [address] [id number] [place] [address]- 8729 Dec, [facility] [address] [id number] [place] [address]- 4323 Dec, [facility] [address] [id number] [place] [address]- 2707 Nov, [facility] [address] [id number] [place] [address]- 5539 Nov, [facility] [address] [id number] [place] [address]- 0076 17 Feb, 2009 [facility] [place] [facility] [address] [id number] [place] [address]- 7379 Jan, [facility] [place] [facility] [address] [id number] [place] [address]- 5376 October, [facility] [address] [id number] [place] [address]- 6464 Sep, [facility] [address] [facility] [id number] [place] [address] Jul, [facility] [address] [facility] [id number] [place] [address]- 2546 Jun, IMMUNIZATIONS No Known Immunizations SOCIAL HISTORY Never Assessed REASON FOR VISIT Weight loss/phenteramine x 1 month. [employer] Hood PLAN OF CARE Activity Details Follow Up 4 Weeks, prn Reason:weight loss management VITAL SIGNS Height 64 in 2017-10-16 Weight 170.5 lbs 2017-10-16 Temperature 99.6 degrees Fahrenheit 2017-10-16 Heart Rate 86 bpm 2017-10-16 Respiratory Rate 20 2017-10-16 BMI 29.26 kg/m2 2017-10-16 Blood pressure systolic 138 mmHg 2017-10-16 Blood pressure diastolic 84 mmHg 2017-10-16 MEDICATIONS Medication Instructions Dosage Frequency Start Date End Date Duration Status Zyrtec Allergy 10 MG Orally Once a day 1 tablet as needed 24h Active Phentermine HCl 37.5 MG Orally Once a day 1 tablet 24h Aug,October 30 days Active Multi Vitamin Daily Orally Once a day 1 tablet 24h Active RESULTS No Results PROCEDURES No Known procedures INSTRUCTIONS MEDICATIONS ADMINISTERED No Known Medications MEDICAL (GENERAL) HISTORY Type Description Date Medical History Seasonal Allergies Surgical History Hysterectomy 2012 Hospitalization History Hospitalization for surgery only 2012
--- OUTSIDE RECORDS SUMMARY | 2018-11-01 07:01 | XMS REPORT ---
Author Author PELON MAN [facility] Address [address] [place] [address] Care Team Providers Care Land Agent Name Role Phone PELON MAN Unavailable PROBLEMS Type Condition ICD9-CM Code [id number] Code Onset Dates Condition Status SNOMED Code Problem Mixed hyperlipidemia E78.2 Active 097818353 Problem Weight loss R63.4 Active 95018482 Problem History of hysterectomy Z90.710 Active [id number] ALLERGIES No Information ENCOUNTERS Encounter Location Date Diagnosis [facility] [id number] [place] [address] [id number] May, [facility] [address] [id number] Mar, [facility] [address] [id number] Nov, Encounter for dental examination Z01.20 [facility] [id number] [place] [address] 45907- 8470 October, Encounter for weight loss counseling Z71.3 [facility] [id number] [place] [address] 73876- 7254 Sep, Weight loss R63.4 [facility] [address] [address]- [address]597 Aug, [facility] [id number] [place] [address] 31170- 0520 Aug, Mixed hyperlipidemia E78.2 [facility] [id number] [place] [address] 68800- 2380 Aug, Annual physical exam Z00.00 and Weight loss counseling, encounter for Z71.3 [facility] [id number] [place] [address] [id number] Jul, Encounter for dental examination Z01.20 [facility] [address] [id number] [place] [id number] Mar, Encounter for dental examination Z01.20 [facility] [address] [id number] [place] [id number] Nov, Encounter for dental examination Z01.20 [facility] [address] [id number] [place] [id number] Sep, Dental examination Z01.20 [facility] [address] [id number] [place] [id number] May, Encounter for dental examination Z01.20 [facility] [address] [id number] [place] [id number] Jan, Encounter for dental examination Z01.20 [facility] [address] [id number] [place] [id number] Sep, Encounter for dental examination Z01.20 [facility] [address] [id number] [place] [id number] Apr, Encounter for dental examination and cleaning without abnormal findings Z01.20 [facility] [address] [id number] [place] [id number] Dec, Dental examination V72.2 [facility] [address] [id number] [place] [id number] October, Dental examination V72.2 [facility] [address] [id number] [place] [address]- 2546 Sep, [facility] [address] [id number] [place] [address]- 2546 Sep, [facility] [address] [id number] [place] [address]- 2546 Feb, [facility] [address] [id number] [place] [address]- 2546 Dec, [facility] [address] [id number] [place] [address]- 2546 Dec, [facility] [address] [id number] [place] [address]- 8778 Dec, [facility] [address] [id number] [place] [address]- [address] Dec, [facility] [address] [id number] [place] [address]- 2535 Dec, [facility] [address] [id number] [place] [address]- 7971 Nov, [facility] [address] [id number] [place] [address]- 5141 Nov, [facility] [address] [id number] [place] [address]- 8526 Nov, [facility] [address] [id number] [place] [address]- 6779 Nov, [facility] [address] [id number] [place] [address]- 4836 October, [facility] [address] [id number] [place] [address]- 8206 October, [facility] [address] [id number] [place] [address]- 6636 Sep, [facility] [address] [id number] [place] [address] 2546 Aug, [facility] [address] [id number] [place] [address]- 2546 Aug, [facility] [address] [id number] [place] [address]- 2546 Aug, [facility] [address] [id number] [place] [address]- 2546 Aug, [facility] [address] [id number] [place] [address]- 2153 Jul, [facility] [place] [facility] [address] [id number] [place] [address]- 5095 Jul, [facility] [place] [facility] [address] [id number] [place] [address]- 6294 Jul, [facility] [place] [facility] [address] [id number] [place] [address]- 2784 Jun, [facility] [place] [facility] [address] [id number] [place] [address]- 7348 Jun, [facility] [place] [facility] [address] [id number] [place] [address]- 1943 Jun, [facility] [place] [facility] [address] [id number] [place] [address]- 2054 Apr, [facility] [place] [facility] [address] [id number] [place] [address]- 6207 Apr, [facility] [place] [facility] [address] [id number] [place] [address]- 1132 Apr, [facility] [place] [facility] [address] [id number] [place] [address]- 8501 Apr, [facility] [place] [facility] [address] [facility] [id number] [place] [address]- 5287 Apr, [facility] [place] [facility] [address] [id number] [place] [address]- 4600 Apr, [facility] [place] [facility] [address] [id number] [place] [address]- 5937 Mar, [facility] [place] [facility] [address] [id number] [place] [address]- 6268 Mar, [facility] [place] [facility] [address] [id number] [place] [address]- 7372 Mar, [facility] [place] [facility] [address] [id number] [place] [address]- 1344 Mar, [facility] [place] [facility] [address] [id number] [place] [address]- 1270 30 Mar, 2012 [facility] [place] [facility] [address] [id number] [place] [address]- 1600 30 Mar, 2012 [facility] [place] [facility] [address] [id number] [place] [address]- 0066 Feb, [facility] [place] [facility] [address] [id number] [place] [address]- 3476 Feb, [facility] [place] [facility] [address] [id number] [place] [address]- 7796 05 Feb, 2012 [facility] [place] [facility] [address] [id number] [place] [address]- 2994 Feb, [facility] [place] [facility] [address] [id number] [place] [address]- 5910 Jan, [facility] [place] [facility] [address] [id number] [place] [address]- 7561 Jan, [facility] [place] [facility] [address] [id number] [place] [address]- 9012 Jan, [facility] [place] [facility] [address] [id number] [place] [address]- 5727 Dec, [facility] [place] [facility] [address] [id number] [place] [address]- 4115 Dec, [facility] [place] [facility] [address] [id number] [place] [address]- 4806 Nov, [facility] [place] [facility] [address] [id number] [place] [address] 2547 Nov, [facility] [place] [facility] [address] [id number] [place] [address]- 6287 Feb, [facility] [place] [facility] [address] [id number] [place] [address]- 7362 Jan, [facility] [place] [facility] [address] [id number] [place] [address]- 0785 October, [facility] [place] [facility] [address] [facility] [id number] [place] [address]- 2309 Sep, [facility] [address] [facility] [id number] [place] [address]- 4134 Jul, [facility] [address] [facility] [id number] [place] [address]- 4775 Jun, IMMUNIZATIONS No Known Immunizations SOCIAL HISTORY Never Assessed REASON FOR VISIT Update Demographics - Personal Info PLAN OF CARE VITAL SIGNS MEDICATIONS Unknown Medications RESULTS No Results PROCEDURES No Known procedures INSTRUCTIONS MEDICATIONS ADMINISTERED No Known Medications MEDICAL (GENERAL) HISTORY Type Description Date Medical History Seasonal Allergies Surgical History Hysterectomy 2012 Hospitalization History Hospitalization for surgery only 2012
--- OUTSIDE RECORDS SUMMARY | 2018-11-01 07:01 | XMS REPORT ---
Author Author MAYRA RAMSEY Organization [facility] Address [address] [place] [address] Care Team Providers Care Flatbed Truck Driver Name Role Phone MAYRA RAMSEY Unavailable PROBLEMS Type Condition ICD9-CM Code XPV40-XA Code Onset Dates Condition Status SNOMED Code Problem Mixed hyperlipidemia E78.2 Active 921586336 Problem Weight loss R63.4 Active 41288447 Problem History of hysterectomy Z90.710 Active 090575234 ALLERGIES No Known Allergies ENCOUNTERS Encounter Location Date Diagnosis [facility] [address] [id number] Mar, [facility] [address] [id number] Nov, Encounter for dental examination Z01.20 [facility] [id number] [place] [address]- 3537 October, Encounter for weight loss counseling Z71.3 [facility] [id number] [place] [address]- 3048 Sep, Weight loss R63.4 [facility] [address] [address] Aug, [facility] [id number] [place] [address]- 2840 Aug, Mixed hyperlipidemia E78.2 [facility] [address] [address]- [address]562 Aug, Annual physical exam Z00.00 and Weight loss counseling, encounter for Z71.3 [facility] [id number] [place] [id number] Jul, Encounter for dental examination Z01.20 [facility] [address] [id number] [id number] Mar, Encounter for dental examination Z01.20 [facility] [address] [id number][place] [id number] Nov, Encounter for dental examination Z01.20 [facility] [address] [id number] [id number] Sep, Dental examination Z01.20 [facility] [address] [id number][place] [id number] May, Encounter for dental examination Z01.20 [facility] [id number] [place] [id number] Jan, Encounter for dental examination Z01.20 [facility] [address] [id number] [id number] Sep, Encounter for dental examination Z01.20 [facility] [address] [id number][place] [id number] Apr, Encounter for dental examination and cleaning without abnormal findings Z01.20 [facility] [address] [id number][place] [id number] Dec, Dental examination V72.2 [facility] [address] [id number][place] [id number] October, Dental examination V72.2 [facility] [address] [id number] [address] Sep, [facility] [address] [id number], [place] [address] Sep, [facility] [address] [id number][place] [address] 2546 Feb, [facility] [address] [id number] [address] Dec, [facility] [address] [id number], [place] [address] 88[address] Dec, [facility] [address] [id number] [place] [address] Dec, [facility] [place] [facility] [address] [id number] [place] [address] 7380 Dec, [facility] [place] [facility] [address] [id number] [place] [address] 2546 Dec, [facility] [place] [facility] [address] [id number] [place] [address]- 3575 Nov, [facility] [place] [facility] [address] [id number] [place] [address]- 6420 Nov, [facility] [place] [facility] [address] [id number] [place] [address] 5[address] Nov, [facility] [place] [facility] [address] [id number] [place] [address] 9738 Nov, [facility] [place] [facility] [address] [id number] [place] [address] 0500 October, [facility] [place] [facility] [address] [id number] [place] [address] 1116 October, [facility] [place] [facility] [address] [id number] [place] [address] 2[address] Sep, [facility] [place] [facility] [address] [id number] [place] [address]- 9246 Aug, [facility] [place] [facility] [address] [id number] [place] [address]- 3102 Aug, [facility] [place] [facility] [address] [id number] [place] [address]- 6714 Aug, [facility] [place] [facility] [address] [id number] [place] [address]- 2774 Aug, [facility] [place] [facility] [address] [id number] [place] [address] 6751 Jul, [facility] [place] [facility] [address] [id number] [place] [address]- 0093 Jul, [facility] [place] [facility] [address] [id number] [place] [address]- 1199 Jul, [facility] [place] [facility] [address] [id number] [place] [address]- 8881 Jun, [facility] [place] [facility] [address] [id number] [place] [address]- [address]64 Jun, [facility] [place] [facility] [address] [id number] [place] [address]- 0023 Jun, [facility] [place] [facility] [address] [id number] [place] [address]- 2371 Apr, [facility] [place] [facility] [address] [id number] [place] [address]- 9875 Apr, [facility] [place] [facility] [address] [id number] [place] [address]- 9391 Apr, [facility] [place] [facility] [address] [id number] [place] [address]- 4520 Apr, [facility] [place] [facility] [address] [id number] [place] [address]- 1687 Apr, [facility] [place] [facility] [address] [id number] [place] [address]- 6327 Apr, [facility] [place] [facility] [address] [id number], [place] [address] 4[address] Mar, [facility] [place] [facility] [address] [id number][place] [address] 3[address] Mar, [facility] [place] [facility] [address] [id number] [place] [address]- 5436 Mar, [facility] [place] [facility] [address] [id number] [place] [address]- 3182 Mar, [facility] [place] [facility] [address] [id number] [place] [address]- [address] Mar, [facility] [place] [facility] [address] [id number] [place] [address]- 9591 30 Mar, 2012 [facility] [address] [id number] [place] [address]- 8336 11 Feb, 2012 [facility] [place] [facility] [address] [id number] [place] [address]- 5446 11 Feb, 2012 [facility] [address] [id number] [place] [address]- 1116 05 Feb, 2012 [facility] [place] [facility] [address] [id number] [place] [address]- 3614 05 Feb, 2012 [facility] [address] [id number] [place] [address]- 4555 Jan, [facility] [address] [id number] [place] [address]- 7255 Jan, [facility] [address] [id number] [place] [address]- 4501 Jan, [facility] [address] [id number] [place] [address]- 6020 Dec, [facility] [address] [id number] [place] [address]- 3120 Dec, [facility] [address] [id number] [place] [address]- 4777 Nov, [facility] [address] [id number] [place] [address]- 8903 Nov, [facility] [address] [id number] [place] [address]- 6985 17 Feb, 2009 [facility] [place] [facility] [address] [id number] [place] [address]- 1438 Jan, [facility] [place] [facility] [address] [id number] [place] [address]- 9806 October, [facility] [address] [id number] [place] [address]- 2165 Sep, [facility] [address] [facility] [id number] [place] [address]- 96[address] Jul, [facility] [address] [facility] [id number] [place] [address]- 2546 Jun, IMMUNIZATIONS No Known Immunizations SOCIAL HISTORY Never Assessed REASON FOR VISIT Weight loss f/u-JEYSON Silverio PLAN OF CARE Activity Details Follow Up 4 Weeks, prn Reason:weight loss VITAL SIGNS Height 64 in 2017-11-13 Weight 167.2 lbs 2017-11-13 Temperature 98.8 degrees Fahrenheit 2017-11-13 Heart Rate 20 bpm 2017-11-13 Respiratory Rate 18 2017-11-13 BMI 28.70 kg/m2 2017-11-13 Blood pressure systolic 104 mmHg 2017-11-13 Blood pressure diastolic 70 mmHg 2017-11-13 MEDICATIONS Medication Instructions Dosage Frequency Start Date End Date Duration Status Phentermine HCl 37.5 MG Orally Once a day 1 tablet 24h Aug, 30 days Active Zyrtec Allergy 10 MG Orally Once a [...]
--- OUTSIDE RECORDS SUMMARY | 2018-11-01 07:01 | XMS REPORT ---
Author Author MAYRA RAMSEY Organization [facility] Address [address] [place] [address] Care Team Providers Care Business Applications Manager Name Role Phone MAYRA RAMSEY Unavailable PROBLEMS Type Condition ICD9-CM Code NPQ77-UB Code Onset Dates Condition Status SNOMED Code Problem Mixed hyperlipidemia E78.2 Active 402980226 Problem Weight loss R63.4 Active 48718525 Problem History of hysterectomy Z90.710 Active 953679247 ALLERGIES No Information ENCOUNTERS Encounter Location Date Diagnosis [facility] [address] [id number] Mar, [facility] [address] [id number] Nov, Encounter for dental examination Z01.20 [facility] [address] [address] October, Encounter for weight loss counseling Z71.3 [facility] [id number] [place] [address]- 3823 Sep, Weight loss R63.4 [facility] [address] [address]- [address] Aug, [facility] [id number] [place] [address]474- 8839 Aug, Mixed hyperlipidemia E78.2 [facility] [address] [address]- [address]14 Aug, Annual physical exam Z00.00 and Weight loss counseling, encounter for Z71.3 [facility] [address] [id number] Jul, Encounter for dental examination Z01.20 [facility] [address] [id number] [place] [id number] Mar, Encounter for dental examination Z01.20 [facility] [address] [id number] [place] [address] Nov, Encounter for dental examination Z01.20 [facility] [address] [id number] [place] [address] Sep, Dental examination Z01.20 [facility] [address] [id number] [place] [id number] May, Encounter for dental examination Z01.20 [facility] [address] [id number] [place] [id number] Jan, Encounter for dental examination Z01.20 [facility] [address] [id number] [place] [address] Sep, Encounter for dental examination Z01.20 [facility] [address] [id number] [place] [id number] Apr, Encounter for dental examination and cleaning without abnormal findings Z01.20 [facility] [address] [id number] [place] [id number] Dec, Dental examination V72.2 [facility] [address] [id number] [place] [id number] October, Dental examination V72.2 [facility] [address] [id number] [address]- 2546 Sep, [facility] [address] [id number] [place] [address]- 2546 Sep, [facility] [address] [id number] [place] [address]- 2546 Feb, [facility] [address] [id number] [place] [address]- 2546 Dec, [facility] [address] [id number] [place] [address]- 2546 Dec, [facility] [address] [id number] [place] [address]- 8802 Dec, [facility] [place] [facility] [address] [id number] [place] [address]- 9822 Dec, [facility] [place] [facility] [address] [id number] [place] [address]- 2546 Dec, [facility] [place] [facility] [address] [id number] [place] [address]- 2823 Nov, [facility] [place] [facility] [address] [id number] [place] [address]- 8904 Nov, [facility] [place] [facility] [address] [id number] [place] [address]- 1374 Nov, [facility] [place] [facility] [address] [id number] [place] [address]- 8095 Nov, [facility] [place] [facility] [address] [id number] [place] [address]- 9739 October, [facility] [place] [facility] [address] [id number] [place] [address]- 5076 October, [facility] [place] [facility] [address] [id number] [place] [address]- 2981 Sep, [facility] [place] [facility] [address] [id number] [place] [address]- 1562 Aug, [facility] [place] [facility] [address] [id number] [place] [address]- 3384 Aug, [facility] [place] [facility] [address] [id number] [place] [address]- 5123 Aug, [facility] [place] [facility] [address] [id number] [place] [address]- 5744 Aug, [facility] [place] [facility] [address] [id number] [place] [address]- 8492 Jul, [facility] [place] [facility] [address] [id number] [place] [address]- 5263 Jul, [facility] [place] [facility] [address] [id number] [place] [address]- 8976 Jul, [facility] [place] [facility] [address] [id number] [place] [address]- 3637 Jun, [facility] [place] [facility] [address] [id number] [place] [address]- 5155 Jun, [facility] [place] [facility] [address] [id number] [place] [address]- 1148 Jun, [facility] [place] [facility] [address] [id number] [place] [address]- 5299 Apr, [facility] [place] [facility] [address] [id number] [place] [address]- 0550 Apr, [facility] [place] [facility] [address] [id number] [place] [address]- 1116 Apr, [facility] [place] [facility] [address] [id number] [place] [address]- 7377 Apr, [facility] [place] [facility] [address] [id number] [place] [address]- 2988 Apr, [facility] [place] [facility] [address] [id number] [place] [address]- 9961 Apr, [facility] [place] [facility] [address] [id number] [place] [address]- 5692 Mar, [facility] [place] [facility] [address] [id number] [place] [address]- 8963 Mar, [facility] [place] [facility] [address] [id number] [place] [address]- 5533 Mar, [facility] [place] [facility] [address] [id number] [place] [address]- 2922 Mar, [facility] [place] [facility] [address] [id number] [place] [address]- 6982 Mar, [facility] [place] [facility] [address] [id number] [place] [address]- 3150 30 Mar, 2012 [facility] [address] [id number] [place] [address]- 0046 11 Feb, 2012 [facility] [place] [facility] [address] [id number] [place] [address]- 1956 Feb, [facility] [address] [id number] [place] [address]- 6626 05 Feb, 2012 [facility] [address] [id number] [place] [address]- 2721 05 Feb, 2012 [facility] [address] [id number] [place] [address]- 8600 Jan, [facility] [address] [id number] [place] [address]- 6984 Jan, [facility] [address] [id number] [place] [address]- 4467 Jan, [facility] [address] [id number] [place] [address]- 1210 Dec, [facility] [address] [id number] [place] [address]- 9111 Dec, [facility] [address] [id number] [place] [address]- 1200 Nov, [facility] [address] [id number] [place] [address]- 3554 Nov, [facility] [address] [id number] [place] [address]- 9164 Feb, [facility] [place] [facility] [address] [id number] [place] [address]- 3348 Jan, [facility] [place] [facility] [address] [id number] [place] [address]- 7026 October, [facility] [address] [id number] [place] [address]- 0170 Sep, [facility] [address] [facility] [id number] [place] [address]- 0581 Jul, [facility] [address] [facility] [id number] [place] [address]- 4488 Jun, IMMUNIZATIONS No Known Immunizations SOCIAL HISTORY Never Assessed REASON FOR VISIT deferred lab PLAN OF CARE VITAL SIGNS MEDICATIONS Unknown Medications RESULTS No Results PROCEDURES No Known procedures INSTRUCTIONS MEDICATIONS ADMINISTERED No Known Medications MEDICAL (GENERAL) HISTORY Type Description Date Medical History Seasonal Allergies Surgical History Hysterectomy 2013 Hospitalization History Hospitalization for surgery only 2012
--- OUTSIDE RECORDS SUMMARY | 2018-11-01 07:01 | XMS REPORT ---
Author Author MAYRA RAMSEY Organization [facility] Address [address] [place] [address] Care Team Providers Care Finger Buffs Assembler Name Role Phone MAYRA RAMSEY Unavailable PROBLEMS Type Condition ICD9-CM Code [id number] Code Onset Dates Condition Status SNOMED Code Problem Mixed hyperlipidemia E78.2 Active 721887709 Problem Weight loss R63.4 Active 36242739 Problem History of hysterectomy Z90.710 Active 664432080 ALLERGIES No Information ENCOUNTERS Encounter Location Date Diagnosis [facility] [address] [id number] Mar, [facility] [address] [id number] Nov, Encounter for dental examination Z01.20 [facility] [address] [address] October, Encounter for weight loss counseling Z71.3 [facility] [id number] [place] [address] Sep, Weight loss R63.4 [facility] [address] [address] Aug, [facility] [id number] [place] [address] Aug, Mixed hyperlipidemia E78.2 [facility] [address] [address] Aug, Annual physical exam Z00.00 and Weight loss counseling, encounter for Z71.3 [facility] [address] [id number] Jul, Encounter for dental examination Z01.20 [facility] [address] [id number] [id number] Mar, Encounter for dental examination Z01.20 [facility] [address] [id number][place] [id number] Nov, Encounter for dental examination Z01.20 [facility] [address] [id number][place] [id number] Sep, Dental examination Z01.20 [facility] [address] [id number][place] [id number] May, Encounter for dental examination Z01.20 [facility] [address] [id number][place] [address] Jan, Encounter for dental examination Z01.20 [facility] [address] [id number][place] [id number] Sep, Encounter for dental examination Z01.20 [facility] [address] [id number][place] [id number] Apr, Encounter for dental examination and cleaning without abnormal findings Z01.20 [facility] [address] [id number][place] [id number] Dec, Dental examination V72.2 [facility] [address] [id number][place] [id number] October, Dental examination V72.2 [facility] [address] [id number] [address] Sep, [facility] [address] [id number], [place] [address] Sep, [facility] [address] [id number], [place] [address] Feb, [facility] [address] [id number] [address] Dec, [facility] [address] [id number], [place] [address] Dec, [facility] [address] [id number] [place] [address] Dec, [facility] [place] [facility] [address] [id number] [place] [address] Dec, [facility] [place] [facility] [address] [id number] [place] [address]- 25[address] Dec, [facility] [place] [facility] [address] [id number] [place] [address] Nov, [facility] [place] [facility] [address] [id number] [place] [address]- [address] Nov, [facility] [place] [facility] [address] [id number] [place] [address]- [address] Nov, [facility] [place] [facility] [address] [id number] [place] [address]- [address] Nov, [facility] [place] [facility] [address] [id number] [place] [address]- [address] October, [facility] [place] [facility] [address] [id number] [place] [address] 6[address] October, [facility] [place] [facility] [address] [id number] [place] [address]- 90[address] Sep, [facility] [place] [facility] [address] [id number] [place] [address]- [address] Aug, [facility] [place] [facility] [address] [id number] [place] [address]- [address] Aug, [facility] [place] [facility] [address] [id number] [place] [address]- 6[address] Aug, [facility] [place] [facility] [address] [id number] [place] [address]- 79[address] Aug, [facility] [place] [facility] [address] [id number] [place] [address]- 1409 Jul, [facility] [place] [facility] [address] [id number] [place] [address]- [address] Jul, [facility] [place] [facility] [address] [id number] [place] [address]- [address] Jul, [facility] [place] [facility] [address] [id number] [place] [address]- 8[address] Jun, [facility] [place] [facility] [address] [id number] [place] [address]- [address] Jun, [facility] [place] [facility] [address] [id number] [place] [address]- 3[address] Jun, [facility] [place] [facility] [address] [id number] [place] [address]- 7[address] Apr, [facility] [place] [facility] [address] [id number] [place] [address]- 368[address] Apr, [facility] [place] [facility] [address] [id number] [place] [address]- 43[address] Apr, [facility] [place] [facility] [address] [id number] [place] [address]- 89[address] Apr, [facility] [place] [facility] [address] [id number] [place] [address]- [address] Apr, [facility] [place] [facility] [address] [id number] [place] [address]- 45[address] Apr, [facility] [place] [facility] [address] [id number], [place] [address]- [address] Mar, [facility] [place] [facility] [address] [id number], [place] [address]- [address] Mar, [facility] [place] [facility] [address] [id number] [place] [address]- 58[address] Mar, [facility] [place] [facility] [address] [id number] [place] [address]- [address] Mar, [facility] [place] [facility] [address] [id number] [place] [address]- 12[address] Mar, [facility] [place] [facility] [address] [id number] [place] [address]- [address] 30 Mar, 2012 [facility] [address] [id number] [place] [address]- [address] 11 Feb, 2012 [facility] [place] [facility] [address] [id number] [place] [address]- 3526 Feb, [facility] [address] [id number] [place] [address]- [address] 05 Feb, 2012 [facility] [address] [id number] [place] [address]- 479[address] 05 Feb, 2012 [facility] [address] [id number] [place] [address]- 70[address] Jan, [facility] [address] [id number] [place] [address]- 409[address] Jan, [facility] [address] [id number] [place] [address]- 132[address] Jan, [facility] [address] [id number] [place] [address]- 28[address] Dec, [facility] [address] [id number] [place] [address]- [address] Dec, [facility] [address] [id number] [place] [address]- 5[address] Nov, [facility] [address] [id number] [place] [address]- [address] Nov, [facility] [address] [id number] [place] [address]- 8035 Feb, [facility] [place] [facility] [address] [id number] [place] [address]- [address] Jan, [facility] [place] [facility] [address] [id number] [place] [address]- 289[address] October, [facility] [address] [id number] [place] [address]- 8535 Sep, [facility] [address] [facility] [id number] [place] [address] Jul, [facility] [address] [facility] [id number] [place] [address] Jun, IMMUNIZATIONS No Known Immunizations SOCIAL HISTORY [...]
--- OUTSIDE RECORDS SUMMARY | 2018-11-01 07:02 | XMS REPORT ---
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 76458051 Problem Unspecified vaginitis and vulvovaginitis 616.10 Active 225337513 Problem Supervision of other normal V22.1 Active 588491506 Problem state, incidental V22.2 Active 98859497 Problem Threatened , unspecified as to episode of care 640.00 Active 96986762 Problem Papanicolaou smear of cervix with low grade squamous intraepithelial lesion (LGSIL) 795.03 Active 367704257 Problem Encounter for removal of intrauterine contraceptive device V25.12 Active 39743826 Problem Screening for iron deficiency anemia V78.0 Active 764820199 Problem Screening examination for venereal disease V74.5 Active 806576585 Problem Screening of Streptococcus B V28.6 Active 439507663 Problem Screening for diabetes mellitus V77.1 Active 259404901 Problem Unspecified procreative management V26.9 Active Problem Screening for malignant neoplasm of the cervix V76.2 Active 050864723 Problem Routine follow-up V24.2 Active 155620557 ALLERGIES No Known Allergies ENCOUNTERS Encounter Location Date Diagnosis [facility] [address] [id number] Nov, [facility] [address] [id number], [place] [address] Aug, [facility] [address] [address] Jul, Encounter for dental examination Z01.20 [facility] [address] [id number][place] [address] Mar, Encounter for dental examination Z01.20 [facility] [address] [id number] [address] Nov, Encounter for dental examination Z01.20 [facility] [address] [id number][place] [address] Sep, Dental examination Z01.20 [facility] [address] [id number][place] [address] May, Encounter for dental examination Z01.20 [facility] [address] [id number][place] [address] Jan, Encounter for dental examination Z01.20 [facility] [address] [id number][place] [address] Sep, Encounter for dental examination Z01.20 [facility] [address] [id number][place] [address] Apr, Encounter for dental examination and cleaning without abnormal findings Z01.20 [facility] [address] [id number][place] [address] Dec, Dental examination V72.2 [facility] [address] [id number][place] [address] October, Dental examination V72.2 [facility] [address] [id number], [place] [address]- [address] Sep, [facility] [address] [id number], [place] [address]- 2546 Sep, [facility] [address] [id number], [place] [address]- 25[address] Feb, [facility] [address] [id number], [place] [address]- [address] Dec, [facility] [address] [id number] [place] [address]- 2546 Dec, [facility] [address] [id number] [place] [address]- 3069 Dec, [facility] [address] [id number] [place] [address]- 2546 Dec, [facility] [address] [id number] [place] [address]- 0098 Dec, [facility] [address] [id number] [place] [address]- 8557 Nov, [facility] [address] [id number] [place] [address]- 4133 Nov, [facility] [address] [id number] [place] [address]- 2816 Nov, [facility] [address] [id number] [place] [address]- 4065 Nov, [facility] [address] [id number] [place] [address]- 9643 October, [facility] [address] [id number] [place] [address]- 9836 October, [facility] [address] [id number] [place] [address]- 0140 Sep, [facility] [address] [id number] [place] [address] 2546 Aug, [facility] [address] [id number] [place] [address]- 2546 Aug, [facility] [address] [id number] [place] [address]- 2546 Aug, [facility] [address] [id number] [place] [address]- 2546 Aug, [facility] [address] [id number] [place] [address]- 9601 Jul, [facility] [place] [facility] [address] [id number] [place] [address]- 5788 Jul, [facility] [place] [facility] [address] [id number] [place] [address]- 3076 Jul, [facility] [place] [facility] [address] [id number] [place] [address]- 0749 Jun, [facility] [place] [facility] [address] [id number] [place] [address]- 7691 Jun, [facility] [place] [facility] [address] [id number] [place] [address]- 6481 Jun, [facility] [place] [facility] [address] [id number] [place] [address]- 7827 Apr, [facility] [place] [facility] [address] [id number] [place] [address]- 4386 Apr, [facility] [place] [facility] [address] [id number], [place] [address]- 7639 Apr, [facility] [place] [facility] [address] [id number] [place] [address]- 1203 Apr, [facility] [place] [facility] [address] [facility] [id number], [place] [address]- 9488 Apr, [facility] [place] [facility] [address] [id number], [place] [address]- 6854 Apr, [facility] [place] [facility] [address] [id number], [place] [address]- 2487 Mar, [facility] [place] [facility] [address] [id number] [place] [address]- 0962 Mar, [facility] [place] [facility] [address] [id number], [place] [address]- 5325 Mar, [facility] [place] [facility] [address] [id number] [place] [address]- 9431 Mar, [facility] [place] [facility] [address] [id number] [place] [address]- 0997 30 Mar, 2012 [facility] [place] [facility] [address] [id number] [place] [address]- 2[address] 30 Mar, 2012 [facility] [place] [facility] [address] [id number] [place] [address]- 4[address] Feb, [facility] [place] [facility] [address] [id number] [place] [address]- 7346 Feb, [facility] [place] [facility] [address] [id number] [place] [address]- 6636 05 Feb, 2012 [facility] [place] [facility] [address] [id number] [place] [address]- 0242 Feb, [facility] [place] [facility] [address] [id number] [place] [address]- 4744 Jan, [facility] [place] [facility] [address] [id number] [place] [address]- 2767 Jan, [facility] [place] [facility] [address] [id number] [place] [address]- 3998 Jan, [facility] [place] [facility] [address] [id number] [place] [address]- 8555 Dec, [facility] [place] [facility] [address] [id number] [place] [address]- 3530 Dec, [facility] [place] [facility] [address] [id number] [place] [address]- 3556 Nov, [facility] [place] [facility] [address] [id number] [place] [address] 2549 Nov, [facility] [place] [facility] [address] [id number] [place] [address]- 3664 Feb, [facility] [place] [facility] [address] [id number] [place] [address]- 2519 Jan, [facility] [place] [facility] [address] [id number] [place] [address]- 5880 October, [facility] [place] [facility] [address] [facility] [id number] [place] [address]- 8025 Sep, [facility] [address] [facility] [id number], [place] [address] 47[address] Jul, [facility] [address] [facility] [id number] [place] [address]- 5[address] Jun, IMMUNIZATIONS No Known Immunizations SOCIAL HISTORY Never Assessed REASON FOR VISIT 4 mo recall PLAN OF CARE Activity Details Follow Up 4 Months Reason:Recall VITAL SIGNS Heart Rate 71 bpm 2016-12-10 Blood pressure systolic 105 mmHg 2016-12-10 Blood pressure diastolic 63 mmHg 2016-12-10 MEDICATIONS Medication Instructions Dosage Frequency Start Date End Date Duration Status Zyrtec Allergy 10 MG Orally Once a day 1 tablet as needed 24h Active Multi Vitamin Daily Orally Once a day 1 tablet 24h Active RESULTS No Results PROCEDURES Procedure Date Ordered Result Body Site PERIODIC ORAL EXAMINATION December 10, 2016 INTRAORL-PERIAPICAL 1 FILM 45980 December 10, 2016 TOPICAL FLUORIDE VARNISH December 10, 2016 INTRAORL-PERIAPICAL EA ADD FILM December 10, 2016 INTRAORL-PERIAPICAL EA ADD FILM December 10, 2016 PROPHYLAXIS - ADULT December 10, 2016 BITEWINGS - FOUR FILMS December 10, 2016 INSTRUCTIONS MEDICATIONS ADMINISTERED No Known Medications MEDICAL (GENERAL) HISTORY Type Description Date Surgical History Hysterectomy 2012 Hospitalization History Hospitalization for surgery only 2012
--- OUTSIDE RECORDS SUMMARY | 2018-11-01 07:02 | XMS REPORT ---
Author Author MAYRA RAMSEY Organization [facility] Address [address] [place] [address] Care Team Providers Care Fiber Optic Assembly Worker Name Role Phone MAYRA RAMSEY Unavailable PROBLEMS Type Condition ICD9-CM Code VQM15-QQ Code Onset Dates Condition Status SNOMED Code Problem Mixed hyperlipidemia E78.2 Active 817086147 Problem Weight loss R63.4 Active 00884984 Problem History of hysterectomy Z90.710 Active 296298296 ALLERGIES No Known Allergies ENCOUNTERS Encounter Location Date Diagnosis [facility] [address] [id number] Mar, [facility] [address] [id number] Nov, Encounter for dental examination Z01.20 [facility] [id number] [place] [address] October, Encounter for weight loss counseling Z71.3 [facility] [id number] [place] [address]- [address] Sep, Weight loss R63.4 [facility] [address] [address] Aug, [facility] [id number] [place] [address] 14[address] Aug, Mixed hyperlipidemia E78.2 [facility] [address] [address] Aug, Annual physical exam Z00.00 and Weight loss counseling, encounter for Z71.3 [facility] [id number] [place] [id number] Jul, Encounter for dental examination Z01.20 [facility] [address] [id number][place] [id number] Mar, Encounter for dental examination Z01.20 [facility] [address] [id number][place] [id number] Nov, Encounter for dental examination Z01.20 [facility] [address] [id number][place] [id number] Sep, Dental examination Z01.20 [facility] [address] [id number][place] [id number] May, Encounter for dental examination Z01.20 [facility] [id number] [place] [id number] Jan, Encounter for dental examination Z01.20 [facility] [address] [id number][place] [id number] Sep, Encounter for dental examination Z01.20 [facility] [address] [id number][place] [id number] Apr, Encounter for dental examination and cleaning without abnormal findings Z01.20 [facility] [address] [id number][place] [id number] Dec, Dental examination V72.2 [facility] [address] [id number][place] [id number] October, Dental examination V72.2 [facility] [address] [id number], [place] [address] Sep, [facility] [address] [id number], [place] [address] Sep, [facility] [address] [id number], [place] [address] Feb, [facility] [address] [id number], [place] [address] Dec, [facility] [address] [id number], [place] [address] Dec, [facility] [address] [id number] [place] [address] Dec, [facility] [place] [facility] [address] [id number] [place] [address] Dec, [facility] [place] [facility] [address] [id number] [place] [address] Dec, [facility] [place] [facility] [address] [id number] [place] [address] Nov, [facility] [place] [facility] [address] [id number] [place] [address] Nov, [facility] [place] [facility] [address] [id number] [place] [address] Nov, [facility] [place] [facility] [address] [id number] [place] [address] Nov, [facility] [place] [facility] [address] [id number] [place] [address] October, [facility] [place] [facility] [address] [id number] [place] [address] October, [facility] [place] [facility] [address] [id number] [place] [address] Sep, [facility] [place] [facility] [address] [id number] [place] [address] Aug, [facility] [place] [facility] [address] [id number] [place] [address] Aug, [facility] [place] [facility] [address] [id number] [place] [address] Aug, [facility] [place] [facility] [address] [id number] [place] [address] Aug, [facility] [place] [facility] [address] [id number] [place] [address] Jul, [facility] [place] [facility] [address] [id number] [place] [address] Jul, [facility] [place] [facility] [address] [id number] [place] [address] Jul, [facility] [place] [facility] [address] [id number] [place] [address] Jun, [facility] [place] [facility] [address] [id number] [place] [address] Jun, [facility] [place] [facility] [address] [id number] [place] [address] Jun, [facility] [place] [facility] [address] [id number] [place] [address] Apr, [facility] [place] [facility] [address] [id number] [place] [address]120 Apr, [facility] [place] [facility] [address] [id number] [place] [address] 15[address] Apr, [facility] [place] [facility] [address] [id number] [place] [address]- 9638 Apr, [facility] [place] [facility] [address] [id number] [place] [address]- 67[address] Apr, [facility] [place] [facility] [address] [id number] [place] [address]- [address]995 Apr, [facility] [place] [facility] [address] [id number], [place] [address] Mar, [facility] [place] [facility] [address] [id number], [place] [address] Mar, [facility] [place] [facility] [address] [id number] [place] [address]- 1997 Mar, [facility] [place] [facility] [address] [id number] [place] [address]698 Mar, [facility] [place] [facility] [address] [id number] [place] [address] Mar, [facility] [place] [facility] [address] [id number] [place] [address]- [address] 30 Mar, 2012 [facility] [address] [id number] [place] [address]- [address] 11 Feb, 2012 [facility] [place] [facility] [address] [id number] [place] [address] 11 Feb, 2012 [facility] [address] [id number] [place] [address]- [address] 05 Feb, 2012 [facility] [place] [facility] [address] [id number] [place] [address]- [address] 05 Feb, 2012 [facility] [address] [id number] [place] [address] Jan, [facility] [address] [id number] [place] [address] Jan, [facility] [address] [id number] [place] [address]- [address] Jan, [facility] [address] [id number] [place] [address]- [address] Dec, [facility] [address] [id number] [place] [address]- [address] Dec, [facility] [address] [id number] [place] [address] Nov, [facility] [address] [id number] [place] [address]- [address]148 Nov, [facility] [address] [id number] [place] [address]- [address] 17 Feb, 2009 [facility] [place] [facility] [address] [id number] [place] [address]- [address] Jan, [facility] [place] [facility] [address] [id number] [place] [address]- 4[address] October, [facility] [address] [id number] [place] [address]- [address] Sep, [facility] [address] [facility] [id number] [place] [address] Jul, [facility] [address] [facility] [id number], [place] [address] Jun, IMMUNIZATIONS No Known Immunizations SOCIAL HISTORY Never Assessed REASON FOR VISIT insurance physical--[facility] PLAN OF CARE Activity Details Follow Up 4 Weeks, prn Reason:weight loss VITAL SIGNS Height 64 in 2017-09-14 Weight 184.6 lbs 2017-09-14 Temperature 99.1 degrees Fahrenheit 2017-09-14 Heart Rate 70 bpm 2017-09-14 Respiratory Rate 20 2017-09-14 BMI 31.68 kg/m2 2017-09-14 Blood pressure systolic 132 mmHg 2017-09-14 Blood pressure diastolic 90 mmHg 2017-09-14 MEDICATIONS Medication Instructions Dosage Frequency Start Date End Date Duration Status Phentermine HCl 37.5 MG Orally Once a day 1 capsule 24h Aug, Sep, 30 days Active Multi Vitamin Daily Orally Once a day 1 tablet 24h Active Zyrtec Allergy 10 MG Orally Once a day 1 tablet as needed 24h Active RESULTS No Results PROCEDURES Procedure Date Ordered Result Body Site LAB NOT BILLED BY [facility] September 14, 2017 Hemoglobin Test Send Out 0 dollar September 14, 2017 ERICKA, ROUTINE* September 14, 2017 INSTRUCTIONS MEDICATIONS ADMINISTERED No Known Medications MEDICAL (GENERAL) HISTORY Type Description Date Medical History Seasonal Allergies Surgical History Hysterectomy 2012 Hospitalization History Hospitalization for surgery only 2012
--- OUTSIDE RECORDS SUMMARY | 2018-11-01 07:02 | XMS REPORT ---
Author MARIAH Hernandez Organization [employer] Address Unknown Phone Unavailable Care Team Providers Care Trench Pipe Layer Helper Name Role Phone MARIAH CARROLL CP Unavailable Allergies, Adverse Reactions, Alerts Substance Reaction Event Type N.K.D.A. 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 Problem Routine follow-up V24.2 Active Problem Encounter for removal of intrauterine contraceptive device V25.12 Active Problem Encounter for dental examination and cleaning without abnormal findings Z01.20 Active Problem Papanicolaou smear of cervix with low grade squamous intraepithelial lesion (LGSIL) 795.03 Active Problem Screening of Streptococcus B V28.6 Active Problem Screening for malignant neoplasm of the cervix V76.2 Active Problem Unspecified procreative management V26.9 Active Problem Unspecified vaginitis and vulvovaginitis 616.10 Active Problem Supervision of other normal V22.1 Active Assessment Encounter for dental examination and cleaning without abnormal findings Z01.20 Active Problem Screening examination for venereal disease V74.5 Active Problem examination or test, positive result V72.42 Active Problem Threatened , unspecified as to episode of care 640.00 Active Problem DTAP TEST V06.1 Active Problem Special screening examination, human papillomavirus [HPV] V73.81 Active Problem Screening for diabetes mellitus V77.1 Active Medications No Known Medications Procedures Procedure Coding System Code Date TOPICAL FLUORIDE VARNISH CPT-4 D1206 May 21, 2015 PROPHYLAXIS - ADULT CPT-4 D1110 May 21, 2015 Vital Signs Date/Time: May 21, 2015 Blood Pressure Diastolic 93 mmHg Blood Pressure Systolic 121 mmHg Height 64 in Results No Known Results Summary Purpose [employer] Submission
--- OUTSIDE RECORDS SUMMARY | 2018-11-01 07:02 | XMS REPORT ---
Author Author PELON MAN [facility] Address [address] [place] [address] Care Team Providers Care Financial Administration Officer Name Role Phone PELON MAN Unavailable PROBLEMS Type Condition ICD9-CM Code [id number] Code Onset Dates Condition Status SNOMED Code Problem state, incidental V22.2 Active 18802170 Problem Papanicolaou smear of cervix with low grade squamous intraepithelial lesion (LGSIL) 795.03 Active 302652188 Problem Screening of Streptococcus B V28.6 Active Problem Encounter for dental examination Z01.20 Active 015053482 Assessment Encounter for dental examination Z01.20 Jan, Active 439095365 Problem Encounter for dental examination and cleaning without abnormal findings Z01.20 Active 186051683 Problem Screening for malignant neoplasm of the cervix V76.2 Active 438043256 Problem Unspecified procreative management V26.9 Active Problem Routine follow-up V24.2 Active 702804082 Problem Encounter for removal of intrauterine contraceptive device V25.12 Active 91042227 Problem Threatened , unspecified as to episode of care 640.00 Active 94309688 Problem Special screening examination, human papillomavirus [HPV] V73.81 Active 348787780 Problem Unspecified vaginitis and vulvovaginitis 616.10 Active 603887600 Problem Supervision of other normal V22.1 Active 228906474 Problem DTAP TEST V06.1 Active Problem Screening for diabetes mellitus V77.1 Active 710469174 Problem Screening examination for venereal disease V74.5 Active 210605591 Problem Screening for iron deficiency anemia V78.0 Active Problem examination or test, positive result V72.42 Active 066985598 Problem 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 Unknown Non Drug Allergy Jan, Unknown SOCIAL HISTORY No smoking Hx information available PLAN OF CARE VITAL SIGNS Heart Rate 73 bpm 2016-02-18 Blood pressure systolic 116 mmHg 2016-02-18 Blood pressure diastolic 74 mmHg 2016-02-18 MEDICATIONS Medication Instructions Dosage Frequency Start Date End Date Duration Status Multi Vitamin Daily Orally Once a day 1 tablet 24h Active Zyrtec Allergy 10 MG Orally Once a day 1 tablet as needed 24h Active Biotin 10 MG Orally Once a day 1 tablet 24h Active RESULTS No Results PROCEDURES Procedure Date Ordered Related Diagnosis Body Site PROPHYLAXIS - ADULT Feb 18, 2016 IMMUNIZATIONS No Known Immunizations
--- OUTSIDE RECORDS SUMMARY | 2018-11-01 07:02 | XMS REPORT ---
Author Author PELON MAN [facility] Address [address] [place] [address] Care Team Providers Care Field Service Engineer Name Role Phone PELON MAN Unavailable PROBLEMS Type Condition ICD9-CM Code ZKL01-ZT Code Onset Dates Condition Status SNOMED Code Problem state, incidental V22.2 Active 79824376 Problem Papanicolaou smear of cervix with low grade squamous intraepithelial lesion (LGSIL) 795.03 Active 286362772 Problem Screening of Streptococcus B V28.6 Active 904711272 Problem Encounter for dental examination Z01.20 Active 231846804 Problem Encounter for dental examination and cleaning without abnormal findings Z01.20 Active 203892596 Problem Screening for malignant neoplasm of the cervix V76.2 Active 173801352 Problem Unspecified procreative management V26.9 Active Problem Routine follow-up V24.2 Active 628485516 Problem Encounter for removal of intrauterine contraceptive device V25.12 Active 70047819 Problem Threatened , unspecified as to episode of care 640.00 Active 81412893 Problem Special screening examination, human papillomavirus [HPV] V73.81 Active 055042059 Problem Unspecified vaginitis and vulvovaginitis 616.10 Active 767050589 Problem Supervision of other normal V22.1 Active 127100749 Problem DTAP TEST V06.1 Active Problem Screening for diabetes mellitus V77.1 Active 723064253 Problem Screening examination for venereal disease V74.5 Active 608106546 Problem Screening for iron deficiency anemia V78.0 Active 494530280 Problem examination or test, positive result V72.42 Active 451922032 Problem 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 Unknown Non Drug Allergy May, Unknown SOCIAL HISTORY No smoking Hx information available PLAN OF CARE Activity Details Follow Up 4 Months Reason:Recall VITAL SIGNS Heart Rate 88 bpm 2016-06-19 Blood pressure systolic 107 mmHg 2016-06-19 Blood pressure diastolic 73 mmHg 2016-06-19 MEDICATIONS Medication Instructions Dosage Frequency Start Date End Date Duration Status Multi Vitamin Daily Orally Once a day 1 tablet 24h Active RESULTS No Results PROCEDURES Procedure Date Ordered Related Diagnosis Body Site PROPHYLAXIS - ADULT Jun 19, 2016 TOPICAL FLUORIDE VARNISH Jun 19, 2016 IMMUNIZATIONS No Known Immunizations
--- OUTSIDE RECORDS SUMMARY | 2018-11-01 07:02 | XMS REPORT ---
Author Author PELON MAN [facility] Address [address] [place] [address] Care Team Providers Care Cordwainer Name Role Phone PELON MAN Unavailable PROBLEMS Type Condition ICD9-CM Code ORE03-AR Code Onset Dates Condition Status SNOMED Code Problem Mixed hyperlipidemia E78.2 Active 334897982 Problem Weight loss R63.4 Active 41401470 Problem History of hysterectomy Z90.710 Active [id number] ALLERGIES No Known Allergies ENCOUNTERS Encounter Location Date Diagnosis [facility] [address] [id number] Nov, [facility] [address] [address] October, [facility] [address] [address] Sep, Weight loss R63.4 [facility] [address] [address] Aug, [facility] [id number] [place] [address] Aug, Mixed hyperlipidemia E78.2 [facility] [address] [address] Aug, Annual physical exam Z00.00 and Weight loss counseling, encounter for Z71.3 [facility] [address] [id number] Jul, Encounter for dental examination Z01.20 [facility] [id number] [place] [id number] Mar, Encounter for dental examination Z01.20 [facility] [address] [id number] Nov, Encounter for dental examination Z01.20 [facility] [address] [id number][place] [id number] Sep, Dental examination Z01.20 [facility] [address] [id number][place] [id number] May, Encounter for dental examination Z01.20 [facility] [address] [id number][place] [id number] Jan, Encounter for dental examination Z01.20 [facility] [id number] [place] [id number] Sep, Encounter for dental examination Z01.20 [facility] [id number] [place] [id number] Apr, Encounter for dental examination and cleaning without abnormal findings Z01.20 [facility] [address] [id number][place] [id number] Dec, Dental examination V72.2 [facility] [address] [id number] [place] [id number] October, Dental examination V72.2 [facility] [id number] [place] [address] Sep, [facility] [address] [id number], [place] [address] Sep, [facility] [address] [id number], [place] [address] Feb, [facility] [address] [id number], [place] [address] Dec, [facility] [id number] [place] [address] Dec, [facility] [address] [id number], [place] [address] Dec, [facility] [id number] [place] [phone] Dec, [facility] [place] [facility] [address] [id number] [place] [address] Dec, [facility] [place] [facility] [address] [id number] [place] [address] Nov, [facility] [place] [facility] [address] [id number] [place] [address] Nov, [facility] [place] [facility] [address] [id number] [place] [address] Nov, [facility] [place] [facility] [address] [id number] [place] [address] Nov, [facility] [place] [facility] [address] [id number] [place] [address] October, [facility] [place] [facility] [address] [id number] [place] [address] October, [facility] [place] [facility] [address] [id number] [place] [address] Sep, [facility] [place] [facility] [address] [id number] [place] [address] Aug, [facility] [place] [facility] [address] [id number] [place] [address] Aug, [facility] [place] [facility] [address] [id number] [place] [address] Aug, [facility] [place] [facility] [address] [id number] [place] [address] Aug, [facility] [place] [facility] [address] [id number] [place] [address] Jul, [facility] [place] [facility] [address] [id number] [place] [address] Jul, [facility] [place] [facility] [address] [id number] [place] [address] Jul, [facility] [place] [facility] [address] [id number] [place] [address] Jun, [facility] [place] [facility] [address] [id number] [place] [address] Jun, [facility] [place] [facility] [address] [id number] [place] [address] Jun, [facility] [place] [facility] [address] [id number] [place] [address] Apr, [facility] [place] [facility] [address] [id number] [place] [address] Apr, [facility] [place] [facility] [address] [id number] [place] [address] Apr, [facility] [place] [facility] [address] [id number] [place] [address] Apr, [facility] [place] [facility] [address] [id number] [place] [address] Apr, [facility] [place] [facility] [address] [id number] [place] [address] Apr, [facility] [place] [facility] [address] [id number] [place] [address] Mar, [facility] [place] [facility] [address] [id number] [place] [address] Mar, [facility] [place] [facility] [address] [id number] [place] [address] Mar, [facility] [place] [facility] [address] [id number] [place] [address] Mar, [facility] [place] [facility] [address] [id number] [place] [address] Mar, [facility] [place] [facility] [address] [id number] [place] Mar, [facility] [place] [facility] [address] [id number] [place] [address] Feb, [facility] [place] [facility] [address] [id number] [place] [address] Feb, [facility] [place] [facility] [address] [id number] [place] [address] Feb, [facility] [place] [facility] [address] [id number] [place] [address] Feb, [facility] [place] [facility] [address] [id number] [place] [address] Jan, [facility] [place] [facility] [address] [id number] [place] [address] Jan, [facility] [place] [facility] [address] [id number] [place] [address] Jan, [facility] [place] [facility] [address] [id number] [place] [address] Dec, [facility] [place] [facility] [address] [id number] [place] [address] Dec, [facility] [place] [facility] [address] [id number] [place] [address] Nov, [facility] [place] [facility] [address] [id number] [place] [address] Nov, [facility] [place] [facility] [address] [id number] [place] [address] Feb, [facility] [place] [facility] [address] [id number], [place] [address] Jan, [facility] [place] [facility] [address] [id number] [place] [address] October, [facility] [place] [facility] [address] [id number] [place] [address] Sep, [facility] [place] [facility] [address] [id number] [place] [address] Jul, 2008 [facility] [place] [facility] [address] [facility] [id number] [place] [address] Jun, IMMUNIZATIONS No Known Immunizations SOCIAL HISTORY Never Assessed REASON FOR VISIT 4 MO RECALL PLAN OF CARE Activity Details Follow Up 4 Months Reason:Recall VITAL SIGNS Heart Rate 70 bpm 2017-04-14 Blood pressure systolic 116 mmHg 2017-04-14 Blood pressure diastolic 69 mmHg 2017-04-14 MEDICATIONS Medication Instructions Dosage Frequency Start Date End Date Duration Status Multi Vitamin Daily Orally Once a day 1 tablet 24h Active Zyrtec Allergy 10 MG Orally Once a day 1 tablet as needed 24h Active RESULTS No Results PROCEDURES Procedure Date Ordered Result Body Site PROPHYLAXIS - ADULT Apr 14, 2017 TOPICAL FLUORIDE VARNISH Apr 14, 2017 INSTRUCTIONS MEDICATIONS ADMINISTERED No Known Medications MEDICAL (GENERAL) HISTORY Type Description Date Medical History Allergies Surgical History Hysterectomy 2012 Hospitalization History Hospitalization for surgery only 2012
--- OUTSIDE RECORDS SUMMARY | 2018-11-01 07:02 | XMS REPORT ---
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 Problem Screening for iron deficiency anemia V78.0 Active Problem Encounter for removal of intrauterine contraceptive device V25.12 Active Problem Screening for malignant neoplasm of the cervix V76.2 Active Problem Routine follow-up V24.2 Active Problem Screening of Streptococcus B V28.6 Active Problem state, incidental V22.2 Active Problem Unspecified procreative management V26.9 Active Problem Papanicolaou smear of cervix with low grade squamous intraepithelial lesion (LGSIL) 795.03 Active Assessment Dental examination V72.2 Active Problem Unspecified vaginitis and vulvovaginitis 616.10 Active Problem Special screening examination, human papillomavirus [HPV] V73.81 Active Problem Screening examination for venereal disease V74.5 Active Problem Supervision of other normal V22.1 Active Problem examination or test, positive result V72.42 Active Problem Threatened , unspecified as to episode of care 640.00 Active Problem DTAP TEST V06.1 Active Medications No Known Medications Procedures Procedure Coding System Code Date Periodontal maint procedures CPT-4 D4910 January 16, 2015 Results No Known Results Summary Purpose eClinicalWorks Submission
--- OUTSIDE RECORDS SUMMARY | 2018-11-01 07:03 | XMS REPORT | Continuity of Care Document ---
Author Organization Unknown Address Unknown Allergies Active Description Code Type Severity Reaction Onset Reported/Identified Relationship to Patient Clinical Status Yes NKANo Known Allergies NKA Miscellaneous Allergy Mild N/A 09/26/2008 Medications There is no data. Problems Date Dx Coded Attending Type Code Diagnosis Diagnosed By 07/11/2008 DARWIN TRAVIS DO 465.9 Acute Upper Respiratory Infections Of Unspecified Site 07/11/2008 DARWIN TRAVIS DO V22.1 Supervision Of Other Normal 07/11/2008 465.9 Acute Upper Respiratory Infections Of Unspecified Site 07/11/2008 V22.1 Supervision Of Other Normal 07/11/2008 465.9 Acute Upper Respiratory Infections Of Unspecified Site 07/11/2008 V22.1 Supervision Of Other Normal 07/11/2008 DARWIN TRAVIS DO 465.9 Acute Upper Respiratory Infections Of Unspecified Site 07/11/2008 DARWIN TRAVIS DO V22.1 Supervision Of Other Normal 07/11/2008 465.9 Acute Upper Respiratory Infections Of Unspecified Site 07/11/2008 V22.1 Supervision Of Other Normal 07/11/2008 465.9 Acute Upper Respiratory Infections Of Unspecified Site 07/11/2008 V22.1 Supervision Of Other Normal 07/11/2008 465.9 Acute Upper Respiratory Infections Of Unspecified Site 07/11/2008 V22.1 Supervision Of Other Normal 07/11/2008 465.9 Acute Upper Respiratory Infections Of Unspecified Site 07/11/2008 V22.1 Supervision Of Other Normal 07/11/2008 465.9 Acute Upper Respiratory Infections Of Unspecified Site 07/11/2008 V22.1 Supervision Of Other Normal 07/11/2008 465.9 Acute Upper Respiratory Infections Of Unspecified Site 07/11/2008 V22.1 Supervision Of Other Normal 07/11/2008 465.9 Acute Upper Respiratory Infections Of Unspecified Site 07/11/2008 V22.1 Supervision Of Other Normal 07/11/2008 465.9 Acute Upper Respiratory Infections Of Unspecified Site 07/11/2008 V22.1 Supervision Of Other Normal 08/09/2008 DARWIN TRAVIS DO V28.8 SCREEN TETRA SCREEN 08/09/2008 DARWIN TRAVIS DO V72.31 Pelvic Exam (internal) 08/09/2008 DARWIN TRAVIS DO V74.5 Std Screen 08/09/2008 V28.8 SCREEN TETRA SCREEN 08/09/2008 V72.31 Pelvic Exam ( internal) 08/09/2008 V74.5 Std Screen 08/09/2008 V28.8 SCREEN TETRA SCREEN 08/09/2008 V72.31 Pelvic Exam ( internal) 08/09/2008 V74.5 Std Screen 08/09/2008 DARWIN TRAVIS DO V28.8 SCREEN TETRA SCREEN 08/09/2008 DARWIN TRAVIS DO V72.31 Pelvic Exam (internal) 08/09/2008 DARWIN TRAVIS DO V74.5 Std Screen 08/09/2008 V28.8 SCREEN TETRA SCREEN 08/09/2008 V72.31 Pelvic Exam ( internal) 08/09/2008 V74.5 Std Screen 08/09/2008 V28.8 SCREEN TETRA SCREEN 08/09/2008 V72.31 Pelvic Exam ( internal) 08/09/2008 V74.5 Std Screen 08/09/2008 V28.8 SCREEN TETRA SCREEN 08/09/2008 V72.31 Pelvic Exam ( internal) 08/09/2008 V74.5 Std Screen 08/09/2008 V28.8 SCREEN TETRA SCREEN 08/09/2008 V72.31 Pelvic Exam ( internal) 08/09/2008 V74.5 Std Screen 08/09/2008 V28.8 SCREEN TETRA SCREEN 08/09/2008 V72.31 Pelvic Exam ( internal) 08/09/2008 V74.5 Std Screen 08/09/2008 V28.8 SCREEN TETRA SCREEN 08/09/2008 V72.31 Pelvic Exam ( internal) 08/09/2008 V74.5 Std Screen 08/09/2008 V28.8 SCREEN TETRA SCREEN 08/09/2008 V72.31 Pelvic Exam ( internal) 08/09/2008 V74.5 Std Screen 08/09/2008 V28.8 SCREEN TETRA SCREEN 08/09/2008 V72.31 Pelvic Exam ( internal) 08/09/2008 V74.5 Std Screen 10/13/2008 DARWIN TRAVIS DO 656.90 2 Vessel Cord 10/13/2008 656.90 2 Vessel Cord 10/13/2008 656.90 2 Vessel Cord 10/13/2008 DARWIN TRAVIS DO 656.90 2 Vessel Cord 10/13/2008 656.90 2 Vessel Cord 10/13/2008 656.90 2 Vessel Cord 10/13/2008 656.90 2 Vessel Cord 10/13/2008 656.90 2 Vessel Cord 10/13/2008 656.90 2 Vessel Cord 10/13/2008 656.90 2 Vessel Cord 10/13/2008 656.90 2 Vessel Cord 10/13/2008 656.90 2 Vessel Cord 02/07/2009 DARWIN TRAVIS DO 646.14 Excess Wt Gain In Preg- Cond Or Prior Comp Deliv 02/07/2009 646.14 Excess Wt Gain In Preg- Cond Or Prior Comp Deliv 02/07/2009 646.14 Excess Wt Gain In Preg- Cond Or Prior Comp Deliv 02/07/2009 DARWIN TRAVIS DO 646.14 Excess Wt Gain In Preg- Cond Or Prior Comp Deliv 02/07/2009 646.14 Excess Wt Gain In Preg- Cond Or Prior Comp Deliv 02/07/2009 646.14 Excess Wt Gain In Preg- Cond Or Prior Comp Deliv 02/07/2009 646.14 Excess Wt Gain In Preg- Cond Or Prior Comp Deliv 02/07/2009 646.14 Excess Wt Gain In Preg- Cond Or Prior Comp Deliv 02/07/2009 646.14 Excess Wt Gain In Preg- Cond Or Prior Comp Deliv 02/07/2009 646.14 Excess Wt Gain In Preg- Cond Or Prior Comp Deliv 02/07/2009 646.14 Excess Wt Gain In Preg- Cond Or Prior Comp Deliv 02/07/2009 646.14 Excess Wt Gain In Preg- Cond Or Prior Comp Deliv 11/27/2011 DARWIN TRAVIS DO V25.12 Iud Removal 11/27/2011 DARWIN TRAVIS DO V26.9 Procreative Management 11/27/2011 DARWIN TRAVIS DO V76.2 Cervical Cancer Screening (pap Smear) 11/27/2011 V25.12 Iud Removal 11/27/2011 V26.9 Procreative Management 11/27/2011 V76.2 Cervical Cancer Screening (pap Smear) 11/27/2011 V25.12 Iud Removal 11/27/2011 V26.9 Procreative Management 11/27/2011 V76.2 Cervical Cancer Screening (pap Smear) 11/27/2011 DARWIN TRAVIS DO Aguila V25.12 Iud Removal 11/27/2011 THADDEUS BUCK DARWIN Aguila V26.9 Procreative Management 11/27/2011 DARWIN TRAVIS DO Aguila V76.2 Cervical Cancer Screening (pap Smear) 11/27/2011 V25.12 Iud Removal 11/27/2011 V26.9 Procreative Management 11/27/2011 V76.2 Cervical Cancer Screening (pap Smear) 11/27/2011 V25.12 Iud Removal 11/27/2011 V26.9 Procreative Management 11/27/2011 V76.2 Cervical Cancer Screening (pap Smear) 11/27/2011 V25.12 Iud Removal 11/27/2011 V26.9 Procreative Management 11/27/2011 V76.2 Cervical Cancer Screening (pap Smear) 11/27/2011 V25.12 Iud Removal 11/27/2011 V26.9 Procreative Management 11/27/2011 V76.2 Cervical Cancer Screening (pap Smear) 11/27/2011 V25.12 Iud Removal 11/27/2011 V26.9 Procreative Management 11/27/2011 V76.2 Cervical Cancer Screening (pap Smear) 11/27/2011 V25.12 Iud Removal 11/27/2011 V26.9 Procreative Management 11/27/2011 V76.2 Cervical Cancer Screening (pap Smear) 11/27/2011 V25.12 Iud Removal 11/27/2011 V26.9 Procreative Management 11/27/2011 V76.2 Cervical Cancer Screening (pap Smear) 11/27/2011 V25.12 Iud Removal 11/27/2011 V26.9 Procreative Management 11/27/2011 V76.2 Cervical Cancer Screening (pap Smear) 12/29/2011 THADDEUS BUCKDARWIN 795.03 ABNORMAL PAP - LGSIL 12/29/2011 795.03 ABNORMAL PAP - LGSIL 12/29/2011 795.03 ABNORMAL PAP - LGSIL 12/29/2011 DARWIN TRAVIS DO 795.03 ABNORMAL PAP - LGSIL 12/29/2011 795.03 ABNORMAL PAP - LGSIL 12/29/2011 795.03 ABNORMAL PAP - LGSIL 12/29/2011 795.03 ABNORMAL PAP - LGSIL 12/29/2011 795.03 ABNORMAL PAP - LGSIL 12/29/2011 795.03 ABNORMAL PAP - LGSIL 12/29/2011 795.03 ABNORMAL PAP - LGSIL 12/29/2011 795.03 ABNORMAL PAP - LGSIL 12/29/2011 795.03 ABNORMAL PAP - LGSIL 02/09/2012 DARWIN TRAVIS DO 233.1 CERVICAL DYSPLASIA: SEVERE 02/09/2012 DARWIN TRAVIS DO V22.2 Incidental 02/09/2012 233.1 CERVICAL DYSPLASIA: SEVERE 02/09/2012 V22.2 Incidental 02/09/2012 233.1 CERVICAL DYSPLASIA: SEVERE 02/09/2012 V22.2 Incidental 02/09/2012 DARWIN TRAVIS DO 233.1 CERVICAL DYSPLASIA: SEVERE 02/09/2012 DARWIN TRAVIS DO V22.2 Incidental 02/09/2012 233.1 CERVICAL DYSPLASIA: SEVERE 02/09/2012 V22.2 Incidental 02/09/2012 233.1 CERVICAL DYSPLASIA: SEVERE 02/09/2012 V22.2 Incidental 02/09/2012 233.1 CERVICAL DYSPLASIA: SEVERE 02/09/2012 V22.2 Incidental 02/09/2012 233.1 CERVICAL DYSPLASIA: SEVERE 02/09/2012 V22.2 Incidental 02/09/2012 233.1 CERVICAL DYSPLASIA: SEVERE 02/09/2012 V22.2 Incidental 02/09/2012 233.1 CERVICAL DYSPLASIA: SEVERE 02/09/2012 V22.2 Incidental 02/09/2012 233.1 CERVICAL DYSPLASIA: SEVERE 02/09/2012 V22.2 Incidental 02/09/2012 233.1 CERVICAL DYSPLASIA: SEVERE 02/09/2012 V22.2 Incidental 02/17/2012 DARWIN TRAVIS DO 640.00 Threatened 02/17/2012 640.00 Threatened 02/17/2012 640.00 Threatened 02/17/2012 DARWIN TRAVIS DO 640.00 Threatened 02/17/2012 640.00 Threatened 02/17/2012 640.00 Threatened 02/17/2012 640.00 Threatened 02/17/2012 640.00 Threatened 02/17/2012 640.00 Threatened 02/17/2012 640.00 Threatened 02/17/2012 640.00 Threatened 02/17/2012 640.00 Threatened 05/19/2012 DARWIN TRAVIS DO 616.10 VAGINITIS AND VULVOVAGINITIS UNSPECIFIED 05/19/2012 616.10 VAGINITIS AND VULVOVAGINITIS UNSPECIFIED 05/19/2012 616.10 VAGINITIS AND VULVOVAGINITIS UNSPECIFIED 05/19/2012 DARWIN TRAVIS DO 616.10 Vaginitis And Vulvovaginitis Unspecified 05/19/2012 616.10 Vaginitis And Vulvovaginitis Unspecified 05/19/2012 616.10 Vaginitis And Vulvovaginitis Unspecified 05/19/2012 616.10 Vaginitis And Vulvovaginitis Unspecified 05/19/2012 616.10 Vaginitis And Vulvovaginitis Unspecified 05/19/2012 616.10 Vaginitis And Vulvovaginitis Unspecified 05/19/2012 616.10 Vaginitis And Vulvovaginitis Unspecified 05/19/2012 616.10 Vaginitis And Vulvovaginitis Unspecified 05/19/2012 616.10 Vaginitis And Vulvovaginitis Unspecified 07/14/2012 DARWIN TRAVIS DO V72.42 TEST POSITIVE RESULT 07/14/2012 V72.42 Test Positive Result 07/14/2012 V72.42 Test Positive Result 07/14/2012 V72.42 Test Positive Result 07/14/2012 V72.42 Test Positive Result 07/14/2012 V72.42 Test Positive Result 07/14/2012 V72.42 Test Positive Result 07/14/2012 V72.42 Test Positive Result 07/14/2012 V72.42 Test Positive Result 07/19/2012 V22.1 , NORMAL OTHER 07/19/2012 DARWIN TRAVIS DO V22.1 , NORMAL OTHER 07/19/2012 V22.1 , NORMAL OTHER 07/19/2012 V22.1 , NORMAL OTHER 07/19/2012 V22.1 , NORMAL OTHER 07/19/2012 V22.1 , NORMAL OTHER 07/19/2012 V22.1 , NORMAL OTHER 07/19/2012 V22.1 , NORMAL OTHER 07/19/2012 V22.1 , NORMAL OTHER 07/19/2012 V22.1 , NORMAL OTHER 08/16/2012 DARWIN TRAVIS DO Aguila V73.81 HPV SCREENING 08/16/2012 THADDEUS BUCK DARWIN Aguila V74.5 STD SCREEN 08/16/2012 THADDEUS BUCK DARWIN Aguila V76.2 CERVICAL CANCER SCREENING (PAP SMEAR) 08/16/2012 V73.81 Hpv Screening 08/16/2012 V74.5 Std Screen 08/16/2012 V76.2 Cervical Cancer Screening (pap Smear) 08/16/2012 V73.81 Hpv Screening 08/16/2012 V74.5 Std Screen 08/16/2012 V76.2 Cervical Cancer Screening (pap Smear) 08/16/2012 V73.81 Hpv Screening 08/16/2012 V74.5 Std Screen 08/16/2012 V76.2 Cervical Cancer Screening (pap Smear) 08/16/2012 V73.81 Hpv Screening 08/16/2012 V74.5 Std Screen 08/16/2012 V76.2 Cervical Cancer Screening (pap Smear) 08/16/2012 V73.81 Hpv Screening 08/16/2012 V74.5 Std Screen 08/16/2012 V76.2 Cervical Cancer Screening (pap Smear) 08/16/2012 V73.81 Hpv Screening 08/16/2012 V74.5 Std Screen 08/16/2012 V76.2 Cervical Cancer Screening (pap Smear) 08/16/2012 V73.81 Hpv Screening 08/16/2012 V74.5 Std Screen 08/16/2012 V76.2 Cervical Cancer Screening (pap Smear) 08/16/2012 V73.81 Hpv Screening 08/16/2012 V74.5 Std Screen 08/16/2012 V76.2 Cervical Cancer Screening (pap Smear) 10/11/2012 V06.1 TDAP DX 10/11/2012 V77.1 DIABETES SCREENING 10/11/2012 V78.0 ANEMIA SCREENING 10/11/2012 V06.1 TDAP DX 10/11/2012 V77.1 DIABETES SCREENING 10/11/2012 V78.0 ANEMIA SCREENING 10/11/2012 V06.1 TDAP DX 10/11/2012 V77.1 DIABETES SCREENING 10/11/2012 V78.0 ANEMIA SCREENING 10/11/2012 V06.1 TDAP DX 10/11/2012 V77.1 DIABETES SCREENING 10/11/2012 V78.0 ANEMIA SCREENING 10/11/2012 V06.1 TDAP DX 10/11/2012 V77.1 DIABETES SCREENING 10/11/2012 V78.0 ANEMIA SCREENING 10/11/2012 V06.1 TDAP DX 10/11/2012 V77.1 DIABETES SCREENING 10/11/2012 V78.0 ANEMIA SCREENING 10/11/2012 V06.1 TDAP DX 10/11/2012 V77.1 DIABETES SCREENING 10/11/2012 V78.0 ANEMIA SCREENING 12/08/2012 V28.6 GBS SCREENING 12/08/2012 V28.6 GBS SCREENING 12/08/2012 V28.6 GBS SCREENING 12/08/2012 V28.6 GBS SCREENING 02/23/2013 V24.2 F/U , ROUTINE 10/26/2018 FRANCISCO DPM, JORGE L Q Ot Z01.818 ENCOUNTER FOR OTHER PREPROCEDURAL EXAMIN Procedures Code [place] [address] URINE TEST (IN- HOUSE) 07/14/2012 02407 URINE TEST (IN- HOUSE) 07/14/2012 35018 ROUTINE VENIPUNCTURE 07/19/2012 41894 SYPHILLIS-[facility] 07/19/2012 76642 ANTIBODY SCREEN (order) 07/19/2012 58647 HEP B SURFACE ANTIGEN (STATE ) 07/19/2012 58034 CBC 07/19/2012 79178 TSH 07/20/2012 1478831 ANTIBODY SCREEN (RESULT ONLY) 07/20/2012 10966 BLOOD TYPE/Rh FACTOR 07/20/2012 69519 HIV ANTIBODIES (RML) 07/20/2012 49842 RUBELLA ANTIBODY, IGG 07/20/2012 24368 ROUTINE VENIPUNCTURE 08/16/2012 00732 UA OB DIP 08/16/2012 96049 PAP SMEAR 08/19/2012 TETRA TETRA SCREEN 08/19/2012 20937 US OB - COMPLETE >14 WEEKS 08/26/2012 3861864 GYNECOLOGIC ADDENDUM REPORT (RESULT ONLY) 08/27/2012 61395 GC/CHLAM PROBE (STATE) 08/28/2012 74219 HPV 08/28/2012 Q0091 PAP SMEAR OBTAIN SMEAR 08/28/2012 09434 UA OB DIP 09/13/2012 59035 ROUTINE VENIPUNCTURE 10/11/2012 33461 UA OB DIP 10/11/2012 03581 CBC 10/11/2012 11430 GLUCOSE JARET 1 HOUR 10/11/2012 46748 UA OB DIP 10/27/2012 02566 UA OB DIP 11/10/2012 88119 UA OB DIP 11/24/2012 02380 UA OB DIP 12/09/2012 80315 UA OB DIP 12/15/2012 20468 UA OB DIP 12/20/2012 70291 CULTURE GROUP B STREP VAG 12/21/2012 79543 UA OB DIP 01/05/2013 Results Test Result Range A1C - 09/14/17 13:42 HEMOGLOBIN A1c 5.2 % of total Hgb <5.7 Encounters ACCT No. Visit Date/Time Discharge Status Pt. Type Provider Facility Loc./Unit Complaint [id number] 09/13/2012 14:41:00 09/13/2012 23:59:59 CLS Outpatient [id number] 08/16/2012 14:10:00 08/16/2012 23:59:59 CLS Outpatient DARWIN TRAVIS DO [id number] 07/19/2012 10:01:00 07/19/2012 23:59:59 CLS Outpatient [id number] 07/14/2012 17:49:00 07/14/2012 23:59:59 CLS Outpatient [id number] 04/20/2012 08:05:00 04/20/2012 23:59:59 CLS Outpatient DARWIN TRAVIS DO [id number] 02/23/2013 09:21:00 Document Registration [id number] 01/05/2013 09:20:00 Document Registration [id number] 12/20/2012 15:54:00 Document Registration [id number] 11/24/2012 14:10:00 Document Registration [id number] 11/10/2012 13:55:00 Document Registration [id number] 10/27/2012 13:54:00 Document Registration [id number] 10/11/2012 13:47:00 Document Registration [id number] 07/21/2018 08:00:00 07/21/2018 23:59:59 CLS Outpatient ANJEL JOHNSON [facility] [id number] 09/14/2017 13:00:00 Document Registration [id number] 10/26/2018 05:39:00 10/26/2018 10:17:00 DIS Outpatient JORGE L SINGH DPM [facility] PREOP [facility] [id number] 02/16/2013 09:28:00 02/17/2013 10:35:00 DIS Outpatient [id number] 02/10/2013 09:53:00 02/10/2013 23:59:59 CLS Outpatient [id number] 01/09/2013 17:10:00 01/12/2013 14:40:00 DIS Inpatient [id number] 11/01/2018 08:00:00 PEN Preadmit JORGE L SINGH DPM [facility] SDC [employer]
--- OUTSIDE RECORDS SUMMARY | 2018-11-01 07:03 | XMS REPORT | Continuity of Care Document ---
Author Author [facility] Organization [facility] Address Unknown Phone Unavailable Care Team Providers Care Agriculture Inspector Name Role Phone DARWIN TRAVIS DO PP Insurance Providers Payer Name Policy Number Subscriber Name Relationship [facility] [employer] [id number] David Clark Self / Same As Patient Advance Directives Directive Response Recorded Date Advance Directives N 02/16/13 10:39am Health Care Power of Pill Coater N 02/16/13 10:39am Organ Donor N 02/16/13 10:39am Problems No Known Problems or Medical conditions. Family History History Response Recorded Date/Time Hx Family Cancer N 02/10/13 10:11am Hx Family Cardiac Disorders N 02/10/13 10 :11am Social History History Response Recorded Date/Time Alcohol Use Denies Use 02/16/13 4:13pm Recreational Drug Use N 02/16/13 4:13pm Recent Foreign Travel N 02/16/13 4:13pm Recent Infectious Disease Exposure N 4:13pm Hospitalization with Isolation Denies 11:23am Sexually Transmitted Disease Y hpv 4:13pm Allergies, Adverse Reactions, Alerts Allergen Type Severity Reaction Last Updated No Known Allergies Allergy Mild 09/26/08 Medications Medication Dose Units Route Sig Qty Days Docusate Sodium (Colace) 100 Mg PO BID Ibuprofen (Motrin) 800 Mg PO Q6H PRN Acetaminophen/Hydrocodone Bitart (Lorcet Plus 10/325 Mg) 1 - 2 Tab PO Every 3 hours PRN Multivitamin (Multi Vitamin Daily) 1 Tab PO DAILY Ibuprofen (Motrin) 600 Mg PO Q6H 90 Vits W-Ca,Fe,Fa(<1MG) ( Vitamins) 1 Each PO Amoxicillin/Clavulanate Potassium (Augmentin 875-125 Tablet) 1 Tab PO BID 20 Guaifenesin (Robitussin) Response Recorded Date/Time Status not known Unknown Results Test Date Result Interp. Ref. Range Band Neutrophils November 06, 2008 8:43pm 0 % - Basophils # (Auto) February 10, 2013 10:40am 0.0 10^3/uL N 0.0-0.1 Basophils % (Manual) November 06, 2008 8:43pm 0 % - Basophils (%) (Auto) February 10, 2013 10:40am 0 % N 0-10 Eosinophils # (Auto) February 10, 2013 10:40am 0.1 10^3/uL N 0.0-0.3 Eosinophils % (Manual) November 06, 2008 8:43pm 0 % - Eosinophils (%) (Auto) February 10, 2013 10:40am 1 % N 0-10 Hematocrit February 10, 2013 10:40am 43 % N 35-52 Hemoglobin February 10, 2013 10:40am 14.4 G/DL N 11.5-16.0 Lymphocytes # (Auto) February 10, 2013 10:40am 2.5 X 10^3 N 1.0-4.0 Lymphocytes % (Manual) November 06, 2008 8:43pm 15 % - Lymphocytes (%) (Auto) February 10, 2013 10:40am 22 % N 12-44 Mean Corpuscular Hemoglobin February 10, 2013 10:40am 31 PG N 25-34 Mean Corpuscular Hemoglobin Concent February 10, 2013 10:40am 34 G/DL N 32-36 Mean Corpuscular Volume February 10, 2013 10:40am 91 FL N 80-99 Mean Platelet Volume February 10, 2013 10:40am 10.9 FL H 7.4-10.4 Monocytes # (Auto) February 10, 2013 10:40am 0.6 X 10^3 N 0.0-1.0 Monocytes % (Manual) November 06, 2008 8:43pm 3 % - Monocytes (%) (Auto) February 10, 2013 10:40am 5 % N 0-12 Neutrophils # (Auto) February 10, 2013 10:40am 8.1 X 10^3 H 1.8-7.8 Neutrophils % (Manual) November 06, 2008 8:43pm 82 % - Neutrophils (%) (Auto) February 10, 2013 10:40am 72 % N 42-75 Platelet Count February 10, 2013 10:40am 188 10^3/uL N 130-400 Red Blood Count February 10, 2013 10:40am 4.68 10^6/uL N 4.35-5.85 Red Cell Distribution Width February 10, 2013 10:40am 13.2 % N 10.0-14.5 White Blood Count February 10, 2013 10:40am 11.2 10^3/uL H 4.3-11.0 Blood Morphology Comment November 06, 2008 8:43pm NORMAL - Procedures Procedure Code Date MANUAL ASSIST DELIV NEC 73.59 11/06/08 OTHER INSTILLATION 96.49 11/07/08 MANUAL ASSIST DELIV NEC 73.59 01/10/13 MEDICAL INDUCTION LABOR 73.4 01/10/13 MRSA Screen 02/10/13 Encounters Encounter Location Date/Time Discharged Inpatient [facility] 5:10pm Departed Emergency Room [facility] 12 :00am
--- OUTSIDE RECORDS SUMMARY | 2018-11-01 07:03 | XMS REPORT | Continuity of Care Document ---
Author Author [facility] Organization [facility] Address Unknown Phone Unavailable Care Team Providers Care Delivery Sales Worker Name Role Phone NO, LOCAL PHYSICIAN PP Unavailable Insurance Providers Payer Name Policy Number Subscriber Name Relationship Thad [employer] [id number] Megan [id number] Boy 01 Self / Same As Patient Advance Directives Directive Response Recorded Date Advance Directives N 01/09/13 6:04pm Health Care Power of Beauty Sales Consultant N 01/09/13 6:04pm Organ Donor N 01/09/13 6:04pm Problems No Known Problems or Medical conditions. Family History History Response Recorded Date/Time Hx Family Cancer N 01/09/13 6:08pm Hx Family Cardiac Disorders N 01/09/13 6: 08pm Social History History Response Recorded Date/Time Alcohol Use Denies Use 01/12/13 11:16am Recreational Drug Use N 01/12/13 11:16am Recent Foreign Travel N 01/12/13 11:16am Recent Infectious Disease Exposure N 11:16am Hospitalization with Isolation Denies 7:00pm Sexually Transmitted Disease Y hpv 11:16am Allergies, Adverse Reactions, Alerts Allergen Type Severity Reaction Last Updated No Known Allergies Allergy Mild 09/26/08 Medications Medication Dose Units Route Sig Qty Days Ibuprofen (Motrin) 600 Mg PO Q6H 90 Vits W-Ca,Fe,Fa(<1MG) ( Vitamins) 1 Each PO Amoxicillin/Clavulanate Potassium (Augmentin 875-125 Tablet) 1 Tab PO BID 20 Guaifenesin (Robitussin) Response Recorded Date/Time Status not known Unknown Results Test Date Result Interp. Ref. Range Band Neutrophils November 06, 2008 8:43pm 0 % - Basophils # (Auto) November 08, 2008 6:30am 0.0 10^3/uL N 0.0-0.1 Basophils % (Manual) November 06, 2008 8:43pm 0 % - Basophils (%) (Auto) November 08, 2008 6:30am 0 % N 0-10 Eosinophils # (Auto) November 08, 2008 6:30am 0.1 10^3/uL N 0.0-0.3 Eosinophils % (Manual) November 06, 2008 8:43pm 0 % - Eosinophils (%) (Auto) November 08, 2008 6:30am 1 % N 0-10 Hematocrit November 08, 2008 6:30am 34 % L 35-52 Hemoglobin November 08, 2008 6:30am 11.2 G/ DL L 11.5-16.0 Lymphocytes # (Auto) November 08, 2008 6:30am 3.6 X 10^3 N 1.0-4.0 Lymphocytes % (Manual) November 06, 2008 8:43pm 15 % - Lymphocytes (%) (Auto) November 08, 2008 6:30am 25 % N 12-44 Mean Corpuscular Hemoglobin November 08, 2008 6:30am 31 PG N 25-34 Mean Corpuscular Hemoglobin Concent November 08, 2008 6:30am 33 G/DL N 32-36 Mean Corpuscular Volume November 08, 2008 6:30am 95 FL N 80-99 Mean Platelet Volume November 08, 2008 6:30am 11.6 FL H 7.4-10.4 Monocytes # (Auto) November 08, 2008 6:30am 0.8 X 10^3 N 0.0-1.0 Monocytes % (Manual) November 06, 2008 8:43pm 3 % - Monocytes (%) (Auto) November 08, 2008 6:30am 6 % N 0-12 Neutrophils # (Auto) November 08, 2008 6:30am 9.9 X 10^3 H 1.8-7.8 Neutrophils % (Manual) November 06, 2008 8:43pm 82 % - Neutrophils (%) (Auto) November 08, 2008 6:30am 69 % N 42-75 Platelet Count November 08, 2008 6:30am 138 10^3/uL N 130-400 Red Blood Count November 08, 2008 6:30am 3.64 10^6/uL L 4.35-5.85 Red Cell Distribution Width November 08, 2008 6:30am 13.5 % N 10.0-14.5 White Blood Count November 08, 2008 6:30am 14.5 10^3/uL H 4.3-11.0 Blood Morphology Comment November 06, 2008 8:43pm NORMAL - Procedures Procedure Code Date MANUAL ASSIST DELIV NEC 73.59 11/06/08 OTHER INSTILLATION 96.49 11/07/08 Encounters Encounter Location Date/Time Discharged Inpatient [facility] 5:10pm Departed Emergency Room [facility] 12 :00am
[2018-11-01] MEDS ORDERED: ceFAZolin INJECTION 1,000 MG in WATER (STERILE) FOR INJECTION 10 ML IV ONE (07:15)
[2018-11-01] MEDS ORDERED: CATHETER FLUSH 10 ML SYR IV PRN (07:30)
[2018-11-01] MEDS ORDERED: BUPIVACAINE 0.5% 30 ML (SENSORCAINE) VIAL ONE (07:30)
[2018-11-01] MEDS: LACTATED RINGERS 1,000 ML IV PRN ×2 (07:33→09:29)
[2018-11-01] MEDS ORDERED: SEVOFLURANE (ULTANE) 15 ML INHAL SOLN ONE (07:55)
[2018-11-01] MEDS ORDERED: ONDANSETRON 4 MG/2 ML (SDV) Z0FRAN ONE (07:55)
[2018-11-01] MEDS ORDERED: LIDOCAINE PF 2% 5 ML (XYLOCAINE) VIAL ONE (07:55)
[2018-11-01] MEDS ORDERED: MIDAZOLAM 2 MG/2 ML (VERSED) VIAL ONE (07:55)
[2018-11-01] MEDS ORDERED: DEXAMETHASONE 10 MG/ML (DECADRON) 1 ML VIAL ONE ×2 (07:55→10:28)
[2018-11-01] MEDS ORDERED: fentaNYL INJECTION 100 MCG/2 ML AMP ONE (07:55)
[2018-11-01] MEDS ORDERED: proPOfol 200 MG/20 ML (DIPRIVAN) VIAL IV ONE (07:55)
--- NOTE | 2018-11-01 08:37 | Progress Note-Pre Operative ---
Pre-Operative Progress Note H&P Reviewed The H&P was reviewed, patient examined and no changes noted. Date Seen by Provider: November 01, 2018 Time Seen by Provider: 08:36 Date H&P Reviewed: November 01, 2018 Time H&P Reviewed: 08:36 Pre-Operative Diagnosis: Hallux Abductovalgus, right JORGE L SINGH DPM November 01, 2018 08:37
[2018-11-01] MEDS ORDERED: KETOROLAC 30 MG/ML VIAL ONE (08:47)
[2018-11-01] MEDS ORDERED: HYDROmorphone 2 MG/ML VIAL (DILAUDID) ONE (10:00)
[2018-11-01] MEDS ORDERED: LACTATED RINGERS 1,000 ML IV SCH (10:56)
--- NOTE | 2018-11-01 10:56 | Diagnostic Imaging Report ---
Indication: Bunionectomy. Comparison: None Total flow time: 6.6 minutes Total number fluoroscopic images saved: 2 Findings: Two intraoperative image intensifier views of the right foot were obtained during bunionectomy. 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 Radiopaque pin is also seen extending to the medial portion of the forefoot. Please note, interpreting radiologist was not present during the procedure. Impression: 1. Fluoroscopic guidance provided during right foot surgery as described above. Dictated by: Dictated on workstation # [id number]
--- NOTE | 2018-11-01 10:56 | Progress Note-Post Operative ---
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 Miguel Ángel osteotomy, right hallux. Anesthesia Type General Estimated Blood Loss Estimated blood loss (mL): Minimal Specimens/Packing Specimens Removed None JORGE L SINGH DPM November 01, 2018 10:56
[2018-11-01] MEDS ORDERED: ONDANSETRON 4 MG/2 ML (SDV) Z0FRAN IVP PRN (11:00)
[2018-11-01] MEDS ORDERED: HYDROmorphone 2 MG/ML VIAL (DILAUDID) IV ONE (11:00)
[2018-11-01] MEDS ORDERED: HYDROcodone/APAP 5 MG/325 MG (LORTAB) TAB PO PRN (11:00)
[2018-11-01] MEDS ORDERED: HYDR-3812 PO (12:30)
[2018-11-01] MEDS ORDERED: CEPH-507 PO (12:30)
--- NOTE | 2018-11-01 13:30 | Physical Therapy Ortho Eval ---
PT Orthopedic Evaluation Type of Surgery right hallux valgus Prior Level of Function Current Living Status: Spouse Locomotion (Upon Admit): Independent Established Durable Medical Eq: Crutches knee scooter Subjective Subjective Patient in bed pre tx, agrees to PT, no complaints of pain at rest. Entry Into Home: Stairs Without Railing Steps Into Home: 2 Steps Accessories: No Railing Motor Control Motor Control: Motor Control WNL ROM ROM: WFL Strength Strength: WFL Transfer Transfers (B, C, W/C) (FIM): 5 Gait Gait Assistive Device: FWW Right Lower Extremity: Right Weight Bearing Status RLE: Non Weight Bearing Left Lower Extremity: Left Weight Bearing Status LLE: Full Weight Bearing Gait (FIM): 2 Distance: 50' Gait Level of Assist: 5 Summary/Comments Patient ambulated 50' with a rolling walker with SBA. Gait is steady, no LOB, compliant with her weight bearing status. Patient also went up and down 1 step using a rolling walker with SBA. Treatment Rendered Treatment: Therapeutic Exercises, Gait Train, Step Train Exercise Instruction: Quad Sets, Heel Slides, Ankle Pumps Assessment/Goals Goal Time Frame: 1 Visit Understands HEP: Yes Safe Ambulation: Yes Plan Treatment Plan: Discharge PT/Family Agrees to Plan: Yes Time Time In: 1235 Time Out: 1252 Total Billed Treatment Time: 17 Billed Treatment Time 1 visit KASEY 17' RG VERONICA PT November 01, 2018 13:30
--- NOTE | 2018-11-01 14:52 | Anesthesia-General Post-Op ---
General Patient Condition Mental Status/LOC: Same as Preop Cardiovascular: Satisfactory Nausea/Vomiting: Absent Respiratory: Satisfactory Pain: Controlled Complications: Absent Post Op Complications Complications None Follow Up Care/Instructions Patient Instructions None needed. Anesthesia/Patient Condition Patient Condition Patient was seen after the procedure and she was doing well, no complaints, stable vital signs, no apparent adverse anesthesia problems. JUDY PEDERSON DO November 01, 2018 14:52
--- NOTE | 2018-11-01 14:59 | Diagnostic Imaging Report ---
INDICATION: Right foot surgery. TIME OF EXAM: 11:11 a.m. FINDINGS: Two views of the right foot demonstrate postsurgical changes. There is plate and numerous screws transfixing the first tarsometatarsal joint. There are postsurgical changes related to the distal first metatarsal as well as the proximal phalanx of the great toe. Alignment is anatomic. IMPRESSION: Satisfactory postop changes to the right foot. Dictated by: Dictated on workstation # [id number]
--- NOTE | 2018-11-01 21:19 | OPERATIVE REPORT ---
DATE OF SERVICE: 11/01/2018 SURGEON: Jenna Singh DPM. PREOPERATIVE DIAGNOSIS: Hallux abductovalgus with metatarsal primus varus, right foot. POSTOPERATIVE DIAGNOSIS: Hallux abductovalgus with metatarsal primus varus, right foot. PROCEDURE: 1. Modified Lapidus bunionectomy, right. 2. Miguel Ángel osteotomy, right hallux. WOUND CLASS: Clean. ANESTHESIA: General. HEMOSTASIS: Pneumatic thigh tourniquet at 250 mmHg. INDICATIONS: This 43-year-old female presents complaining of a painful bunion on both feet. She has indicated the right was worse than the left. After risks and complications were discussed at length she is willing to proceed. No guarantees were extended to the patient at this time. DESCRIPTION OF PROCEDURE: The patient was brought back to the operating table, placed in a secure supine position. General anesthetic was then induced. A pneumatic thigh tourniquet was placed on the right lower extremity over several layers of padding. The right foot was then prepped and draped in normal sterile manner. Appropriate timeout was performed. The right foot was then elevated and allowed to exsanguinate after which the tourniquet was inflated to 250 mmHg. Attention was then directed to the dorsal aspect of the right first metatarsal cuneiform joint where a 5 cm longitudinal linear incision was created with great care to identify and retract all vital neurovascular structures as the incision was deepened deeply down to the joint capsule of the first metatarsal medial cuneiform. The capsular tissue was reflected medially and laterally. Next, utilizing a power sagittal saw, the base of the first metatarsal and the distal articular cartilage of the medial cuneiform was then reduced. The cut to the base of the first metatarsal was perpendicular to the long axis of the first metatarsal. The cut to the medial cuneiform was perpendicular to the long axis of the second metatarsal. Excellent bony apposition was appreciated at this time and temporary fixation was applied and confirmed with C-arm that the intermetatarsal angle was appropriately reduced. Next, a 0.062 smooth K-wire was driven from medial to lateral through the head of the first metatarsal and the varus rotation applied. The K-wire was then driven through the second metatarsal head. This allowed for derotation of the first metatarsal and improved alignment of the sesamoidal position confirmed by intraoperative C-arm. Next, a guidewire was driven from a dorsal distal to proximal plantar across the first metatarsal cuneiform joint and a 3.5 cannulated screw of 26 mm of length was applied across the arthrodesis joint. Excellent bony apposition and fixation was appreciated both visually as well as on intraoperative C-arm. Next, a Bhakta 4-hole standard Lapidus plate was then applied to the medial aspect of the first metatarsal cuneiform joint. The screws were of 3.5 mm diameter and all were locking except the most distal portion of the plate. The 2 proximal screws were of 22 mm and 20 mm of length. The distal screw was a nonlocking compression screw 16 mm of length and 2 additional distal screws were 18 mm of length. Excellent bony apposition and fixation was appreciated at this time and it was confirmed by intraoperative C-arm. Attention was then directed to the dorsal aspect of the first metatarsophalangeal joint where a 4 cm longitudinal linear incision was created. The incision deepened in same plane with great care to identify and retract all vital neurovascular structures. All necessary blood vessels were cauterized as encountered. The incision was deepened down to the capsular tissue where a longitudinal capsulotomy was performed. The capsular tissue was reflected medially exposing the hypertrophic head of the medial head of the first metatarsal, which was resected utilizing a power sagittal saw. Attention was then directed to the first intermetatarsal space where a lateral release was performed. The conjoint tendon of the adductor hallucis was released as well as the fibular sesamoidal ligament. Excellent soft tissue reduction of the lateral contracture was noted at this time. However, there remained some lateral deviation and an Miguel Ángel type procedure was then performed. Subperiosteal dissection was carried out to the diaphysis of the first metatarsal where a wedge of bone was then resected with the base medial and lateral cortices held intact. The two pilot plant supervisor holes were created at the dorsal medial aspect of the osteotomy allowing a 28-gauge monofilament wire to pass through the pilot plant supervisor hole securing the osteotomy in a closed position. Copious amounts of normal saline were utilized for irrigation through the proximal and a little distal incisions throughout the procedure. A closure was now performed in layers. A deep closure was performed with 3-0 Vicryl to both the proximal and distal incisions. A wedge of capsule was taken from the medial aspect of the right first metatarsophalangeal joint area. Deep closure again was performed with a 3-0 Vicryl, superficial closure was performed with 4-0 Vicryl followed by skin closure with 4-0 Prolene in a horizontal mattress type stitch to both incisions. It should be noted that there was an auxiliary stab incision to access the most plantar of the holes of the 4-hole standard Lapidus plate, which actually had five holes. This stab incision was irrigated as well and a simple interrupted type stitch applied. Tourniquet was released noted appropriate cap refill time to all digits of the right foot. Excellent range of motion was noted to the first metatarsophalangeal joint in appropriate alignment. A stable arthrodesis site was noted to the first metatarsal cuneiform joint area. Postoperative injection consisted of 16 mL of 0.5% Marcaine injected in a local infusion to the surgical sites. Postoperative dressing consisted of Betadine soaked Adaptic, sterile 4 x 4, sterile Kerlix all secured with a Coban wrap. The patient tolerated the anesthesia and procedure well and was transported from the operating room to the recovery area with vital signs stable and vascular status intact to all digits of the right foot. She is to be nonweightbearing on the right foot and follow up in the office in 10 days' period of time or sooner if necessary. Job ID: [id number] DocumentID: [id number] Dictated Date: 11/01/2018 11:09:42 Surface Grinder Tender Date: 11/01/2018 21:18:59 Dictated By: JENNA SINGH DPM
== END 2018-11-01 13:10 | disposition home or self-care (01) ==
LOC: SDC 06:57
PROVIDERS: ATTEND Podiatrist Foot & Ankle Surgery
DX: M20.11 Hallux valgus (acquired), right foot (principal); Z11.2 Encounter for screening for other bacterial diseases; Z87.891 Personal history of nicotine dependence
CPT/HCPCS: 73620; 87081